=== PATIENT | female | born 1985 | race Caucasian/White ===

== ENCOUNTER 2021-11-11 14:07 | Emergency (ER) | payer OTHER, SELFPAY ==
[2021-11-11 14:12] VITALS: BP 142/79; PULSE 90; RESP 20; TEMP 36.3; O2SAT 100
[2021-11-11 14:25] VITALS: BP 142/79; PULSE 90; RESP 20; TEMP 36.3; O2SAT 100
--- NOTE | 2021-11-11 14:32 | PC.NURSE ---
takes victoza for appetite suppressant not for diabetes
--- NOTE | 2021-11-11 15:01 | ED.EYEPROB ---
HPI - Eye Problem General Chief complaint: Eye Problems Stated complaint: blurred vision Source: patient and RN notes reviewed Mode of arrival: ambulatory History of Present Illness HPI Narrative: This is a 36-year-old female diagnosed that while she was at work today she noticed a flash in her eye, headache with blurry vision and a little bit of dizziness and unsteadiness on her feet. Patient notes that she has never experienced this before and she is unsure which I had blurriness or the flash. Patient describes her headache as a pulsating pain on the left side of her eye. The patient denies SOB, CP, palpitation, extremity numbness, lightheadedness, dizziness, constipation, diarrhea, chills, or fever. According to patient she still has a headache but none of the other symptoms. Patient Related Data Home Medications Medication Instructions Recorded Confirmed liraglutide [Victoza 3-Mele] mg SUBCUT 11/11/21 omeprazole 11/11/21 Allergies Allergy/AdvReac Type Severity Reaction Status Date / Time aspirin Allergy Mild Rash Verified 11/11/21 14:25 Review of Systems Review of Systems: A 14 organ system Review of Systems was performed and pertinent positives included in the HPI, otherwise remaining ROS is negative. REPLACED BY [facility] Past Medical History Medical History Anxiety Depression PCOS (polycystic ovarian syndrome) induced hypertension Surgical History Surgical History History of classical section History of tonsillectomy Hx of tubal ligation Family History Family History Other Diabetes mellitus Hypertension Social History Social History (Updated 11/23/19 @ 01:02 by Shaji Cruz) Smoking status: Smoker, status unknown Tobacco type: cigarettes and e-cigarettes/vaping Second hand tobacco smoke exposure: Yes Alcohol intake: current Exam Narrative: GENERAL: This is a well-nourished, well-developed patient, in no apparent distress. HEAD: normocephalic, atraumatic. EYES: PERRL. Sclera clear/white. Vision is grossly intact. EARS: External ears normal, auditory canals clear and without drainage, TMs normal without perforation. Hearing grossly intact. NOSE: External nose normal with no obvious nasal discharge, nares without redness, no rhinorrhea. THROAT: Mucous membranes moist, posterior pharynx clear. NECK: Neck supple, non-tender without lymphadenopathy, masses or thyromegaly. CARDIOVASCULAR: Regular rate and rhythm without murmurs, gallops, or rubs. RESPIRATORY: Clear to auscultation. Breath sounds equal bilaterally. No wheezes, rales, or rhonchi. GASTROINTESTINAL: Abdomen soft, non-tender, nondistended. Bowel sounds are active. No hepato-splenomegaly, or palpable masses. No guarding. SKIN: warm, intact with no suspicious lesions or rash, good texture and turgor. NEURO: awake, alert, and oriented to person, place and time. There were no obvious focal neurologic abnormalities. Steady gait EXTREMITIES: Normal range of motion. No edema. No calf tenderness. Negative Homans sign bilaterally. BACK: Nontender without deformity or crepitance. No flank tenderness. Course Course Emergency Course: Patient will be treated for migraine headaches with Imitrex Vital Signs Vital signs: Vital Signs Temperature 97.4 F L 11/11/21 14:12 Pulse Rate 90 11/11/21 14:12 Respiratory Rate 20 11/11/21 14:12 Blood Pressure 142/79 H 11/11/21 14:12 Pulse Oximetry 100 11/11/21 14:12 Temperature 97.4 F L 11/11/21 14:25 Pulse Rate 90 11/11/21 14:25 Respiratory Rate 20 11/11/21 14:25 Blood Pressure 142/79 H 11/11/21 14:25 Pulse Oximetry 100 11/11/21 14:25 MDM - Eye Problem Differential Diagnosis Differential diagnosis: Likely conjunctivitis and other (Migraine headache) Discharge Plan Discharge Cli
== END 2021-11-11 15:02 | disposition home or self-care (01) ==
PROVIDERS: Emergency Provider Nurse Practitioner; PCP Internal Medicine
DX: G43.909 Migraine, unspecified, not intractable, without status migrainosus (principal)
CPT/HCPCS: 99213; G0463

== ENCOUNTER 2022-04-28 17:51 | Emergency (ER) | payer OTHER, SELFPAY ==
--- NOTE | 2022-04-28 18:10 | ED.URI ---
HPI - URI/Sore Throat General Chief Complaint: Upper Respiratory Infection Stated Complaint: cough/fever/vomiting/weakness Time Seen by Provider: 04/28/22 18:35 Source: patient and RN notes reviewed Mode of arrival: ambulatory Limitations: no limitations History of Present Illness HPI Narrative: 36-year-old female presents with concern for fever, body pain, cough, weakness, sinus congestion. Reports persistent cough causing burning in her chest. Reports symptoms started yesterday. She reports she took Tylenol prior to arrival. Reports she left work early because she was vomiting. She denies ear pain, sore throat, diarrhea. Denies known sick contacts. Reports she was hospitalized 1 week ago for cellulitis in order to get IV antibiotics. Reports she did not have the symptoms at that time. Reports her cellulitis is resolved, however she is currently still finishing her course of Cefdinir MD elicited complaint: cough and sore throat Related Data Home Medications Medication Instructions Recorded Confirmed cefdinir 300 mg capsule 1 cap PO BID 04/28/22 04/28/22 liraglutide 0.6 mg/0.1 mL (18 mg/3 1 ea subcut DAILY 04/28/22 04/28/22 mL) subcutaneous pen injector (Victoza 3-Mele) metformin 1,000 mg tablet 1 tablet PO DAILY 04/28/22 04/28/22 Allergies Allergy/AdvReac Type Severity Reaction Status Date / Time aspirin Allergy Mild Rash Verified 04/28/22 18:14 Review of Systems Review of Systems: CONSTITUTIONAL: Reports malaise, generalized weakness, fever. EYES: Denies visual changes, redness, or discharge. ENT: Reports rhinorrhea, congestion, sinus pain, otalgia and sore throat. CARDIOVASCULAR: Denies chest pain, palpitations, or edema. RESPIRATORY: Reports cough. Denies dyspnea. GASTROINTESTINAL: Denies abdominal pain, diarrhea. Reports nausea, vomiting, SKIN: Denies rash or itching. MUSCULOSKELETAL: Denies myalgia. NEUROLOGIC: Denies headache. All systems reviewed & are unremarkable except as noted in HPI and below PMFSH Past Medical History Medical History Anxiety Depression PCOS (polycystic ovarian syndrome) induced hypertension Surgical History Surgical History History of classical section History of tonsillectomy Hx of tubal ligation Family History Family History Other Diabetes mellitus Hypertension Social History Social History (Updated 11/23/19 @ 01:02 by Shaji Cruz) Smoking status: Smoker, status unknown Tobacco type: cigarettes and e-cigarettes/vaping Second hand tobacco smoke exposure: Yes Alcohol intake: current Comments At time of signature, agree with nursing past medical, surgical, social and family history. There is no relevant family history pertinent to the presenting complaint Exam Narrative: GENERAL: Nontoxic-appearing and in no acute distress. HEAD: Normocephalic EYES: PERRLA, conjunctivae clear ENT: Nares clear, clear discharge. Mucous membranes moist. TM pearly friedman with sharp light reflex bilaterally; no tragal tenderness. Oropharynx not erythematous without lesions. Tonsils not enlarged and without exudate, no drooling, no hoarseness, no trismus, uvula midline. NECK: Supple. No lymphadenopathy CHEST: Clear to auscultation, breath sounds equal. No wheezing, rhonchi, rales, or stridor. No respiratory distress, speaks in full sentences. Persistent cough noted HEART: Regular rate and rhythm. No murmur heard. SKIN: Warm, dry, no rash. NEURO: Alert and oriented x3. PSYCH: Normal mood and affect Course Course Emergency Course: Patient is allergic to aspirin, reports she has no allergy or reaction to ibuprofen, ibuprofen given due to patient's fever, she recently took Tylenol. Patient is aware of diagnosis, understands and agrees to treatment plan. Anticipatory guidance given.
[2022-04-28 18:20] VITALS: BP 133/105; PULSE 148; RESP 24; TEMP 39.2; O2SAT 100
[2022-04-28] MEDS: IBUPROFEN 400 MG TABLET 800 MG PO (18:36)
[2022-04-28 18:55] VITALS: BP 127/94; PULSE 123; RESP 20; TEMP 38.8
== END 2022-04-28 18:55 | disposition home or self-care (01) ==
PROVIDERS: Emergency Provider Nurse Practitioner
DX: B34.9 Viral infection, unspecified (principal); Z20.822 Contact with and (suspected) exposure to COVID-19; E28.2 Polycystic ovarian syndrome
CPT/HCPCS: 87426; 87804; 99213; A9270; C9803; G0463

== ENCOUNTER 2022-05-15 14:49 | Emergency (ER) | payer OTHER, SELFPAY ==
[2022-05-15 14:58] VITALS: BP 120/82; PULSE 75; RESP 16; TEMP 36.8; O2SAT 100
--- NOTE | 2022-05-15 15:06 | ED.SKABFB ---
HPI - Skin/Abscess/Foreign Bdy General Chief complaint: Skin/Abscess/Foreign Body Stated complaint: Lump on Left Arm Time Seen by Provider: 05/15/22 15:07 Source: patient Mode of arrival: ambulatory Limitations: no limitations History of Present Illness HPI narrative: 36 yo F presents with c/o possible insect bite to L upper arm since yesterday that is getting progressively worse. Started as small blister and now has significant surrounding redness. Also has a scabbed insect bite to R knee. No fever/chills. All systems reviewed and negative except as noted above. Related Data Home Medications Medication Instructions Recorded Confirmed liraglutide 0.6 mg/0.1 mL (18 mg/3 1 ea subcut DAILY 04/28/22 05/15/22 mL) subcutaneous pen injector (Victoza 3-Mele) metformin 1,000 mg tablet 1 tablet PO DAILY 04/28/22 05/15/22 Allergies Allergy/AdvReac Type Severity Reaction Status Date / Time aspirin Allergy Mild Rash Verified 05/15/22 14:54 Review of Systems Review of Systems: CONSTITUTIONAL: Denies fever, chills, or sweats. EYES: Denies visual changes, redness, or discharge. ENT: Denies rhinorrhea, congestion, sore throat, or otalgia. CARDIOVASCULAR: Denies chest pain, palpitations, or edema. RESPIRATORY: Denies cough or dyspnea. GASTROINTESTINAL: Denies abdominal pain, nausea, vomiting, or diarrhea. GENITOURINARY: Denies dysuria or hematuria. SKIN: Denies rash or itching. Reports erythema, blister to left upper arm. Reports scabbed insect bite to right knee. MUSCULOSKELETAL: Denies back pain, joint pain, or myalgia. NEUROLOGIC: Denies headache, numbness, or weakness. PSYCHIATRIC: Denies anxiety or depression. All other systems reviewed are negative, except as documented in HPI. [facility] Past Medical History Medical History Anxiety Depression PCOS (polycystic ovarian syndrome) induced hypertension Surgical History Surgical History History of classical section History of tonsillectomy Hx of tubal ligation Family History Family History Other Diabetes mellitus Hypertension Social History Social History (Updated 11/23/19 @ 01:02 by Shaji Cruz) Smoking status: Smoker, status unknown Tobacco type: cigarettes and e-cigarettes/vaping Second hand tobacco smoke exposure: Yes Alcohol intake: current Comments At time of signature, agree with nursing past medical, surgical, social and family history. There is no relevant family history pertinent to the presenting complaint. Exam Narrative: GENERAL: This is a well-nourished, well-developed patient, in no apparent distress. HEAD: normocephalic, atraumatic. EYES: PERRL. Sclera clear/white. Vision is grossly intact. EARS: External ears normal NOSE: External nose normal THROAT: Mucous membranes moist, posterior pharynx clear. NECK: Neck supple, non-tender without lymphadenopathy, masses or thyromegaly. CARDIOVASCULAR: Regular rate and rhythm without murmurs, gallops, or rubs. RESPIRATORY: Clear to auscultation. Breath sounds equal bilaterally. No wheezes, rales, or rhonchi. SKIN: warm, Dry, intact with no suspicious lesions or rash, good texture and turgor. 1 cm serous blister to posterior aspect of upper arm. There is 10 cm x 6 cm surrounding erythema. Mild swelling. No warmth. No tenderness on palpation. There is a 1 cm scabbed lesion to right knee. No surrounding erythema. NEURO: awake, alert, and oriented to person, place and time. There were no obvious focal neurologic abnormalities. EXTREMITIES: No joint tenderness, effusion, or edema noted. Course Course Level of Care: Express Care Visit Vital Signs Vital signs: Vital Signs Temperature 36.8 C 05/15/22 14:58 Pulse Rate 75 05/15/22 14:58 Respiratory Rate 16 05/15/22 14:58 Blood Pressure
== END 2022-05-15 15:27 | disposition home or self-care (01) ==
PROVIDERS: Emergency Provider Nurse Practitioner Family; PCP Internal Medicine
DX: S40.862A Insect bite (nonvenomous) of left upper arm, initial encounter (principal); S80.261A Insect bite (nonvenomous), right knee, initial encounter; W57.XXXA Bitten or stung by nonvenomous insect and other nonvenomous arthropods, initial encounter; E28.2 Polycystic ovarian syndrome
CPT/HCPCS: 99213; G0463

== ENCOUNTER 2022-09-07 13:16 | Emergency (ER) | payer OTHER, SELFPAY ==
[2022-09-07 13:29] VITALS: BP 123/72; PULSE 74; RESP 18; TEMP 36.7; O2SAT 100
--- NOTE | 2022-09-07 14:48 | ED.SKABFB ---
HPI - Skin/Abscess/Foreign Bdy General Chief complaint: Skin/Abscess/Foreign Body Stated complaint: lump back of head Time Seen by Provider: 09/07/22 14:43 Source: patient Mode of arrival: ambulatory Limitations: no limitations History of Present Illness HPI narrative: Patient presents today complaining of a painful bump on the back of her head that is causing a headache. Symptoms began 2 days ago. Patient has tried no [id number] treatment prior to arrival. Currently rates her pain 04/29. Related Data Home Medications Medication Instructions Recorded Confirmed liraglutide 0.6 mg/0.1 mL (18 mg/3 1 ea subcut DAILY 04/28/22 09/07/22 mL) subcutaneous pen injector (Victoza 3-Mele) metformin 1,000 mg tablet 1,000 mg DIRECTED 09/07/22 09/07/22 Allergies Allergy/AdvReac Type Severity Reaction Status Date / Time aspirin Allergy Mild Rash Verified 05/15/22 14:54 Review of Systems Review of Systems: CONSTITUTIONAL: Denies body aches, fever, chills, or sweats. EYES: Denies visual changes, redness, or discharge. ENT: Denies rhinorrhea, congestion, sore throat, or otalgia. CARDIOVASCULAR: Denies chest pain, palpitations, or edema. RESPIRATORY: Denies cough or dyspnea. GASTROINTESTINAL: Denies abdominal pain, nausea, vomiting, or diarrhea. GENITOURINARY: Denies dysuria or hematuria. SKIN: + Lump to scalp MUSCULOSKELETAL: Denies back pain, joint pain, or myalgia. NEUROLOGIC: Denies headache, numbness, tingling, or weakness. PSYCH: Denies depression or anxiety. [facility] Past Medical History Medical History Anxiety Depression PCOS (polycystic ovarian syndrome) induced hypertension Surgical History Surgical History History of classical section History of tonsillectomy Hx of tubal ligation Family History Family History Other Diabetes mellitus Hypertension Social History Social History Smoking status: Smoker, status unknown Tobacco type: cigarettes and e-cigarettes/vaping Second hand tobacco smoke exposure: Yes Alcohol intake: current Comments At time of signature, I have reviewed and agree with nursing past medical, surgical, social and family history unless otherwise noted. Please see nursing chart for further information. There is no relevant family history pertinent to the presenting complaint Exam Narrative: GENERAL: Well-appearing, well-nourished, and in no acute distress. HEAD: Normocephalic, atraumatic. EYES: EOMI. No redness or drainage. Conjunctivae normal. ENT: Mucous membranes pink and moist. NECK: Normal AROM. CHEST: No respiratory distress. EXTREMITIES: Normal range of motion. No edema. SKIN: Warm, dry, no rash. Capillary refill normal. Normal skin turgor. 2cm round erythematous indurated area to the left posterior scalp that is tender to palpation. No fluctuance. No drainage. NEURO: No focal deficits. Alert and oriented x3. Gait steady. PSYCH: Normal affect. No signs of depression or anxiety. Course Course Level of Care: Express Care Visit Vital Signs Vital signs: Vital Signs Temperature 98.1 F 09/07/22 13:29 Pulse Rate 74 09/07/22 13:29 Respiratory Rate 18 09/07/22 13:29 Blood Pressure 123/72 09/07/22 13:29 Pulse Oximetry 100 09/07/22 13:29 Oxygen Delivery Room Air 09/07/22 13:29 Temperature 98.1 F 09/07/22 13:29 Pulse Rate 74 09/07/22 13:29 Respiratory Rate 18 09/07/22 13:29 Blood Pressure 123/72 09/07/22 13:29 Pulse Oximetry 100 09/07/22 13:29 Oxygen Delivery Room Air 09/07/22 13:29 Reviewed. Pt has been instructed to follow up with her PCP regarding her elevated blood pressure today. MDM - Skin/Abscess/Foreign Bdy Differential Diagnosis Differenti
== END 2022-09-07 14:55 | disposition home or self-care (01) ==
PROVIDERS: Emergency Provider Nurse Practitioner; PCP Internal Medicine
DX: L03.811 Cellulitis of head [any part, except face] (principal); E28.2 Polycystic ovarian syndrome
CPT/HCPCS: 99213; G0463

== ENCOUNTER 2023-12-26 19:23 | Emergency (ER) | payer SELFPAY ==
--- NOTE | ~2023-12-26 | XR_ITS ---
EXAM: XR foot LT min 3V DATE: 12/26/2023 19:55 HISTORY: LEFT LATERAL FOOT PAIN AND SWELLING , NO INJURY . COMPARISON: None. FINDINGS: Normal mineralization. No fracture or dislocation. No lytic or blastic lesion. Mild degene rative change at the first MTP joint. No erosion or periosteal change. Soft tissues within normal riley its. IMPRESSION: No acute osseous finding in the left foot. Reviewed, dictated and finalized at location K. [employer]
[2023-12-26 19:35] VITALS: BP 134/88; PULSE 74; RESP 18; TEMP 36.3; O2SAT 100
--- NOTE | 2023-12-26 20:13 | ED.GENADULT ---
HPI - General Adult General Chief complaint: Extremity Problem,Nontraumatic Stated complaint: pain in left foot Time Seen by Provider: 12/26/23 20:13 Source: patient, RN notes reviewed and old records reviewed Mode of arrival: ambulatory Limitations: no limitations History of Present Illness HPI narrative: 38-year-old female presents to the [facility] with pain to the lateral left foot. Symptoms started over month ago. Patient denies any injury. Has not followed up with primary care provider. States that she tried a new pair of shoes which has not helped. States pain is better in the morning gets worse throughout the day. Related Data Home Medications Medication Instructions Recorded Confirmed liraglutide 0.6 mg/0.1 mL (18 mg/3 1 ea subcut DAILY 04/28/22 12/26/23 mL) subcutaneous pen injector (Victoza 3-Mele) metformin 1,000 mg tablet 1,000 mg DIRECTED 09/07/22 12/26/23 Allergies Allergy/AdvReac Type Severity Reaction Status Date / Time aspirin Allergy Mild Rash Verified 12/26/23 19:54 Review of Systems Review of Systems: All systems reviewed & are unremarkable except as noted in HPI and below Constitutional: Constitutional: Reports no additional constitutional complaints Eyes: Eyes: Reports no additional eye complaints ENT: Reports system reviewed and no additional complaints, except as documented Cardiovascular: Cardiovascular: Reports no additional cardiovascular complaints, Denies chest pain and Denies dyspnea Respiratory: Respiratory: Reports no additional respiratory complaints, Denies chest congestion, Denies cough and Denies dyspnea Gastrointestinal: Gastrointestinal: Reports no additional gastrointestinal complaints, Denies abdominal pain, Denies nausea and Denies vomiting Musculoskeletal: Musculoskeletal: Reports as per HPI Integumentary/Breasts: Skin/Breast: Reports system reviewed and no additional complaints, except as docu Neurologic: Reports system reviewed and no additional complaints, except as documented Psychiatric: Psychiatric: Reports no additional psychiatric complaints Allergic/Immunologic: Allergic/Immunologic: Reports no additional allergic/immunologic complaints [facility] Past Medical History Medical History Anxiety Depression PCOS (polycystic ovarian syndrome) induced hypertension Surgical History Surgical History History of classical section History of tonsillectomy Hx of tubal ligation Family History Family History Other Diabetes mellitus Hypertension Social History Social History Smoking status: Smoker, status unknown Tobacco type: cigarettes and e-cigarettes/vaping Second hand tobacco smoke exposure: Yes Alcohol intake: current Comments At the time of my signature, I reviewed and agree with the nursing past medical, surgical, social, and family history. There is no relevant family history pertinent to the patient complaint. Exam Const: General: cooperative, healthy appearing, comfortable, no acute distress, well developed, alert and well nourished Nutritional Appearance: well nourished Orientation/consciousness: patient oriented x3 Limitations: no limitations HENMT: Head: normal to inspection Ears: hearing grossly normal bilaterally and external ears normal Face/Nose/Sinus: Normal external nose present, Normal nares present, Normal nasal mucous membranes and turbinates present, normal facial exam and face symmetric Face and sinus: normal facial exam and face symmetric Eyes: General: appearance normal, both eyes and all related structures Alignment and Position: alignment normal Periorbital: periorbital findings normal Pupils: Equal, round and reactive pupils present EOM: EOMs intact bilaterally Neck:
== END 2023-12-26 20:22 | disposition home or self-care (01) ==
PROVIDERS: Emergency Provider Nurse Practitioner; PCP Internal Medicine
DX: M79.672 Pain in left foot (principal); F17.210 Nicotine dependence, cigarettes, uncomplicated; F17.290 Nicotine dependence, other tobacco product, uncomplicated; E28.2 Polycystic ovarian syndrome
CPT/HCPCS: 73630; 99213; G0463

== ENCOUNTER 2024-06-10 19:21 | Emergency (ER) | payer SELFPAY ==
[2024-06-10 19:30] VITALS: BP 140/77; PULSE 103; RESP 22; TEMP 38.4; O2SAT 95
--- NOTE | 2024-06-10 19:38 | ED.URI ---
HPI - URI/Sore Throat General Chief Complaint: Upper Respiratory Infection Stated Complaint: congestion,fever,cough,VENCES Time Seen by Provider: 06/10/24 19:32 Source: patient and RN notes reviewed Mode of arrival: ambulatory Limitations: no limitations History of Present Illness HPI Narrative: Patient presents today complaining 4 day history congestion, headache, nonproductive cough. Three days ago fever started with a T-max of 102.9?. Denies sore throat or difficulty swallowing. Deep breath elicits coughing episodes. She has been trying Mucinex, cold and flu medicine, and ibuprofen with some mild relief. Related Data Home Medications Medication Instructions Recorded Confirmed liraglutide 0.6 mg/0.1 mL (18 mg/3 1 ea subcut DAILY 04/28/22 12/26/23 mL) subcutaneous pen injector (Victoza 3-Mele) metformin 1,000 mg tablet 1,000 mg DIRECTED 09/07/22 12/26/23 Allergies Allergy/AdvReac Type Severity Reaction Status Date / Time aspirin Allergy Mild Rash Verified 06/10/24 19:23 Review of Systems Review of Systems: CONSTITUTIONAL: Denies body aches, chills, or sweats.+ fever EYES: Denies visual changes, redness, or discharge. ENT: Denies rhinorrhea, sore throat, or otalgia.+ congestion CARDIOVASCULAR: Denies chest pain, palpitations, or edema. RESPIRATORY: Denies dyspnea.+ cough GASTROINTESTINAL: Denies abdominal pain, nausea, vomiting, or diarrhea. GENITOURINARY: Denies dysuria or hematuria. SKIN: Denies rash, itching, or wounds. MUSCULOSKELETAL: Denies back pain, joint pain, or myalgia. NEUROLOGIC: Denies numbness, tingling, or weakness.+ headache PSYCH: Denies depression or anxiety. [facility] Past Medical History Medical History Anxiety Depression PCOS (polycystic ovarian syndrome) induced hypertension Surgical History Surgical History History of classical section History of tonsillectomy Hx of tubal ligation Family History Family History Other Diabetes mellitus Hypertension Social History Social History Smoking status: Smoker, status unknown Tobacco type: cigarettes and e-cigarettes/vaping Second hand tobacco smoke exposure: Yes Alcohol intake: current Comments At time of signature, I have reviewed and agree with nursing past medical, surgical, social and family history unless otherwise noted. Please see nursing chart for further information. There is no relevant family history pertinent to the presenting complaint Exam Narrative: GENERAL: Mildly ill-appearing, well-nourished, and in no acute distress. Diaphoretic HEAD: Normocephalic, atraumatic. EYES: EOMI. No redness or drainage. Conjunctivae normal. ENT: Mucous membranes pink and moist. Nares congested. No rhinorrhea. TMs normal bilaterally. Throat normal. Uvula midline. NECK: Normal AROM. Supple. No lymphadenopathy. CHEST: No respiratory distress. Clear to auscultation. HEART: Regular rate and rhythm. No murmur appreciated. EXTREMITIES: Normal range of motion. No edema. SKIN: Warm, dry, no rash. Capillary refill normal. Normal skin turgor. NEURO: No focal deficits. Alert and oriented x3. Gait steady. PSYCH: Normal affect. No signs of depression or anxiety. Course Course Level of Care: Express Care Visit Vital Signs Vital signs: Vital Signs Temperature 101.1 F H 06/10/24 19:30 Pulse Rate 103 H 06/10/24 19:30 Respiratory Rate 22 H 06/10/24 19:30 Blood Pressure 140/77 06/10/24 19:30 Pulse Oximetry 95 06/10/24 19:30 Oxygen Delivery Room Air 06/10/24 19:30 Temperature 101.1 F H 06/10/24 19:30 Pulse Rate 103 H 06/10/24 19:30 Respiratory Rate 22 H 06/10/24 19:30 Blood Pressure 140/77 06/10/24 19:30 Pulse Oximetry
[2024-06-10 19:48] LABS: EDINFLUASCREEN Negative; EDINFLUBSCREEN Negative; EDSTREPNEGPOS1 Presumptive Negative
== END 2024-06-10 19:53 | disposition home or self-care (01) ==
PROVIDERS: Emergency Provider Nurse Practitioner; PCP Internal Medicine
DX: B34.9 Viral infection, unspecified (principal); Z20.822 Contact with and (suspected) exposure to COVID-19; F17.210 Nicotine dependence, cigarettes, uncomplicated; F17.290 Nicotine dependence, other tobacco product, uncomplicated; E28.2 Polycystic ovarian syndrome
CPT/HCPCS: 87081; 87426; 87804; 87880; 99213; G0463

== ENCOUNTER 2024-06-11 18:56 | Emergency (ER) | payer SELFPAY ==
[2024-06-11] VITALS (9 sets, daily range): BP systolic 125–152; BP diastolic 78–108; PULSE 89–115; RESP 15–20; TEMP 37.1; O2SAT 94–100
--- NOTE | ~2024-06-11 | XR_ITS ---
EXAMINATION: XR chest 2V Exam Date/Time: 06/11/2024 19:35 CDT HISTORY: cough, fever, sob Comparison: 03/12/2009. RESULT: Lines, tubes, and devices: None. Lungs and pleura: Ill-defined area of segmental airspace disease in the right lower lobe. Cardiomediastinal silhouette: Stable. Other: No acute osseous or upper abdominal finding. IMPRESSION: Findings concerning for right lower lobe pneumonia. Reviewed, dictated and finalized at location K.
--- NOTE | ~2024-06-11 | CT_ITS ---
EXAMINATION: CTA chest PE protocol DATE: 06/12/2024 00:30 INDICATION: Shortness of breath and right lower lobe pneumonia TECHNIQUE: Computed tomography (CT) pulmonary angiogram of the chest was performed with 100 mL Omnipa que-350 intravenous contrast. Additional 3D reconstructions utilizing coronal maximum intensity proje ction (MIP) were performed. Automated exposure control and iterative reconstruction technique were em ployed. The dose-length product was 1171.40 mGy-cm. COMPARISON: None FINDINGS: No pulmonary embolism. Centrilobular groundglass nodules with tree-in-bud pattern scattered throughou t the in the right upper, middle, bilateral lower lobes, and at the junction of the left upper lobe a nd lingula consistent with multifocal pneumonia. No pulmonary edema, pleural effusion or pneumothorax . Heart size is normal. No pericardial effusion. Thoracic aorta is normal in caliber with no dissecti on. Mild reticulonodular pattern soft tissue density interspersed with fat in the anterior mediastinu m with triangular configuration consistent with thymic hyperplasia. Mild likely reactive bilateral hi lar lymphadenopathy. Cholecystectomy clips in the right upper quadrant. Mild splenomegaly. Bones are unremarkable. IMPRESSION: 1. Bilateral haines lobar pneumonia. No pulmonary embolism. 2. Mild likely reactive bilateral hilar lymphadenopathy, nonspecific splenomegaly and rebound thymic hyperplasia. Reviewed, dictated and finalized at location A. IMPRESSION: 1. Bilateral haines lobar pneumonia. No pulmonary embolism. 2. Mild likely reactive bilateral hilar lymphadenopathy, nonspecific splenomega ly and rebound thymic hyperplasia.
--- NOTE | 2024-06-11 19:21 | ECG_ITS ---
Test Date: 2024-06-11 19:25:47 Measurements Intervals [place] Rate: 100 P: 54 NC: 142 QRS: 65 QRSD: 90 T: 16 QT: 304 QTc: 393 Interpretive Statements SINUS TACHYCARDIA NONSPECIFIC ST-T WAVE ABNORMALITY- INFERIOR LEADS BASELINE ARTIFACT- II, III, AVR, AVL, AVF, V1-V2 BORDERLINE ECG No previous ECG available for comparison Electronically Signed On 06-11-2024 19:28:27 CDT by Kory Elliott D.O.
[2024-06-11 19:42] LABS: Basophils Percent Auto 0.3 % (0.2-1.2); Eosinophils Percent Auto 0.5 % (0-4.4); Hematocrit 36.7 % (37.0-47.0); Immature Granulocyte Absolute 0.02 K/mm3 (0.00-0.031); Immature Granulocyte Percent A 0.3 % (0-0.5); Lymphocytes Absolute Auto 1.27 K/mm3 (0.9-3.2); Lymphocytes Percent Auto 17.1 % (18.3-44.2); Mean Corpuscular HGB Conc 32.7 g/dl (32-36); Mean Corpuscular Hemoglobin 29.6 pg (26-34); Mean Corpuscular Volume 90.4 fl (80-100); Mean Platelet Volume 10.9 fl (7.4-10.4); Monocytes Absolute Auto 0.6 K/mm3 (0.1-0.6); Monocytes Percent Auto 8.2 % (2.6-8.5); Neutrophils Absolute Auto 5.5 K/mm3 (1.3-6.7); Neutrophils Percent Auto 73.6 % (45.5-73.1); Platelet Count Result 220 k/mm3 (150-375); Red Blood Count 4.06 M/mm3 (4.2-5.4); Red Cell Distribution Width 14.3 % (11.5-14.5); White Blood Count 7.4 K/mm3 (4.5-10.0)
[2024-06-11 19:54] LABS: Alanine Aminotransferase 17 U/L (6-35); Albumin Level 4.2 g/dL (3.5-5.1); Alkaline Phosphatase 59 U/L (38-126); Anion Gap 10 mmol/L (4-12); Aspartate Amino Transferase 21 U/L (14-36); Bilirubin,Total 0.4 mg/dL (0.2-1.3); Blood Urea Nitrogen 17 mg/dL (7-17); Calcium 8.7 mg/dL (8.4-10.2); Carbon Dioxide 31 mmol/L (22-30); Chloride 96 mmol/L (98-107); Estimated CRCL calculation 102 ml/min; Estimated Glomerular Filt Rate > 60; Glucose 101 mg/dL (65-110); Potassium 3.7 mmol/L (3.4-5.0); Sodium 137 mmol/L (137-145)
[2024-06-11 20:17] LABS: Influenza A QL RT-PCR Negative (Negative); Influenza B QL RT-PCR Negative (Negative); RSV RNA, RT-PCR Negative (Negative); SARS-CoV-2 RNA PCR Negative (Negative)
--- NOTE | 2024-06-11 23:42 | ED.URI ---
HPI - URI/Sore Throat General Chief Complaint: Upper Respiratory Infection Stated Complaint: fever,cough Time Seen by Provider: 06/11/24 22:27 Source: patient Mode of arrival: ambulatory Limitations: no limitations History of Present Illness HPI Narrative: Patient is a 38-year-old female who presents the ED with report of fevers/cough. Patient reports she has been sick since with intermittent fevers, productive cough, myalgias, chest congestion, shortness of breath. She reports shortness breath is worse with exertion and lying flat. She seen in urgent care, tested negative for COVID/flu and diagnosed with a viral infection. She reports symptoms have persisted and shortness of breath has worsened. She used a home pulse oximeter which showed her pulse ox to be 89% on room air, which prompted her presentation. Patient denies previous oxygen requirement. Denies chest pain, pain or swelling in lower extremities. She does report her significant other recently was diagnosed with pneumonia and her daughter has had a sinus infection. Related Data Home Medications Medication Instructions Recorded Confirmed liraglutide 0.6 mg/0.1 mL (18 mg/3 1 ea subcut DAILY 04/28/22 12/26/23 mL) subcutaneous pen injector (Victoza 3-Mele) metformin 1,000 mg tablet 1,000 mg DIRECTED 09/07/22 12/26/23 Allergies Allergy/AdvReac Type Severity Reaction Status Date / Time aspirin Allergy Mild Rash Verified 06/11/24 18:58 Review of Systems Review of Systems: CONSTITUTIONAL: See HPI. ENT: See HPI. CARDIOVASCULAR: Denies chest pain RESPIRATORY: See HPI. All systems reviewed & are unremarkable except as noted in HPI and below PMFSH Past Medical History Medical History Anxiety Depression PCOS (polycystic ovarian syndrome) induced hypertension Surgical History Surgical History History of classical section History of tonsillectomy Hx of tubal ligation Family History Family History Other Diabetes mellitus Hypertension Social History Social History Smoking status: Smoker, status unknown Tobacco type: cigarettes and e-cigarettes/vaping Second hand tobacco smoke exposure: Yes Alcohol intake: current Exam Narrative: GENERAL: Well appearing, morbidly obese with BMI of 56.5, non-toxic, in no acute distress. HEAD: Normocephalic, atraumatic. RESPIRATORY: Airway patent, respirations nonlabored. Mild rhonchi in right lower lung zone. Occasional coughing on exam. CARDIOVASCULAR: Tachycardic with regular rhythm without murmurs, rubs, or gallops. ABDOMINAL: Soft, nontender, nondistended. Normoactive BS. MUSCULOSKELETAL: Moves all extremities. No gross deformities. No lower extremity edema. No calf tenderness. SKIN: Warm, dry, normal color. NEURO: A&O X3. Speech clear. PSYCHIATRIC: Appropriate mood and affect. Normal interaction. Course Vital Signs Vital signs: Vital Signs Temperature 98.8 F 06/11/24 19:17 Pulse Rate 89 06/11/24 19:17 Respiratory Rate 16 06/11/24 19:17 Blood Pressure 152/78 H 06/11/24 19:17 Pulse Oximetry 97 06/11/24 19:17 Oxygen Delivery Room Air 06/11/24 19:17 Temperature 98.8 F 06/11/24 19:17 Pulse Rate 104 H 06/11/24 22:28 Respiratory Rate 17 06/11/24 22:28 Blood Pressure 136/85 06/11/24 22:28 Pulse Oximetry 94 06/11/24 22:28 Oxygen Delivery Room Air 06/11/24 22:28 MDM - URI/Sore Throat MDM Narrative Medical decision making narrative: Patient presented to ED with several day history of cough, fevers, myalgias. Vital signs are stable upon arrival. Patient mildly tachycardic upon my evaluation. Cbc without leukocytosis. CMP unremarkable. Viral swabs were negative
[2024-06-12] VITALS (18 sets, daily range): BP systolic 124–154; BP diastolic 67–118; PULSE 100–118; RESP 15–27; O2SAT 89–98
[2024-06-12 00:04] LABS: NT Pro B Type Natriuretic Pept < 20 pg/mL (19.9-100); Troponin I < 0.012 ng/mL (0.000-0.034)
[2024-06-12] MEDS: AZITHROMYCIN 500 MG/NS 250 ML 500 MG/250 ML BAG 250 MG IVPB (02:40)
--- NOTE | 2024-06-12 03:33 | PC.NURSE ---
PT c/o that her arm with the IV was hurting up to her shoulder. ERP notified and ok with stopping IV ABX and D/C patient.
== END 2024-06-12 03:34 | disposition home or self-care (01) ==
PROVIDERS: Emergency Medicine; Emergency Provider Physician Assistant; PCP Internal Medicine
DX: J18.9 Pneumonia, unspecified organism (principal); F17.210 Nicotine dependence, cigarettes, uncomplicated; Z20.822 Contact with and (suspected) exposure to COVID-19
CPT/HCPCS: 36415; 71046; 71275; 80053; 83880; 84484; 85025; 87637; 93005; 96365; 96367; 99284; J0456; J0696; Q9967

== ENCOUNTER 2025-04-03 22:35 | Emergency (ER) | payer SELFPAY ==
--- OUTSIDE RECORDS SUMMARY | 2025-04-03 22:38 | XMS_ITS | Clinical Summary ---
Author Organization [facility] Address [address] [place] [address] Care Team Providers Care Performance Analyst Name Role Phone Unavailable Primary Care Provider Unavailabl e Social History Tobacco Use Types Packs/Day Years Used Date Smoking Tobacco: Never Assessed Comments Unknown Sex and Gender Information Value Date Recorded Sex Assigned at Not on file Legal Sex Female 12:38 PM BODY DESIGN CHECKER Gender Identity Not on file Sexual Orientation Not on file Plan of Treatment Health Maintenance Due Date Last Done Comments Hepatitis C Virus (HCV) Screening 1985 TdaP Immunization 1985 Pap Smear 2006 Cervical Cancer Screening (CCS) 2015 HPV/Cotest 2015 Influenza Immunization (#1) 2024 10/30/2017, 0 12/27/2016 SARS-COV-2 Immunization ( season) 2024 Respiratory Syncytial Virus (RSV) Immunization (Adult) (1 - 1-dose 75+ series) 2060 DTaP/Tdap/Td Immunization Discontinued 1999, 05/26/1990, 07/25/1987, Additional history exists Hepatitis B Immunization Completed 001, 2000, 06/28/2000 Meningococcal Immunization (ACWY) Aged Out No longer eligible based on patient's age to complete this topic Pneumococcal Immunization Combined Aged Out No longer eligible based on patient's age to complete this topic Rotavirus Immunization Aged Out No lo nger eligible based on patient's age to complete this topic
--- OUTSIDE RECORDS SUMMARY | 2025-04-03 22:38 | XMS_ITS | Clinical Summary ---
Author Organization [facility] Address [address] [place] [address] Care Team Providers Care National Park Tour Guide Name Role Phone Guido Echols MD Primary Care Provider [phone] Allergies Active Allergy Reactions Criticality Noted Date Comments Aspirin Chest pressure,Shortness of Breath High 0 03/17/2016 Medications omeprazole (PRILOSEC) 20 MG capsuleIndicatio ns:Acid reflux Take 1 capsule (20 mg total) by mouth daily. 30 capsule 3 1 Active metFORMIN 1000 MG tabletIndication s:Class 3 severe obesity due to excess calories without serious comorbidity with body mass index (BMI) of 50.0 to 59.9 in adult Take 1 tablet (1,000 mg total) by mouth 2 (two) times daily with meals. 60 tablet 2 2 Active Additional Information Patient not taking.Reported on 01/09/2023 ubrogepant (UBRELVY) 100 MG tabletIndication s:Other migraine without status migrainosus, intractable Take 1 tablet (100 mg total) by mouth daily as needed for Migraine. May take 2nd dose 2 hours later if headache persists. Max of 2 tablets (200 mg) in 24 hours 10 tablet 2 Active Active Problems Problem Noted Date Diagnosed Date PCOS (polycystic ovarian syndrome) 01/09/2023 Migraine 09/14/2022 Gastroesophageal reflux disease without esophagi tis 10/21/2021 Acute bacterial conjunctivitis of right eye 05/0 03/2021 Anxiety 03/17/2016 Fatigue 03/17/2016 Snoring 03/17/2016 Resolved Problems Problem Noted Date Diagnosed Date Resolved Date Cellulitis of scalp 09/14/2022 01/09/20 Insect bite of arm, left 09/14/2022 Insect bite of knee, right 09/14/2022 0 01/09/2023 Biliary colic 12/18/2019 10/21/2021 Pain, foot, right, chronic 12/27/2016 0 01/09/2023 Immunizations Immunization Administration Dates Next Due DTaP (Daptacel) 05/26/1990, 7,04/26/1986,1985,1985 Fluzone 6 Months+ Quad (0.5 mL Prefilled Syringe) 09/14/2022 Hepatitis B Pediatric 12/06/2000,2000,07/2000 Influenza Adult (Generic) 10/30/2017,09/2017,12/27/2016,2016 MMR 05/07/1991,03/21/1987 Polio IPV (Ipol) 07/25/1987, 6,02/22/1986,1985 Family History Medical History Relation Comments Diabetes Brother Diabetes Father Hyperlipidemia Father Hypertension Father Diabetes Maternal Grandfather Heart Disease Maternal Grandfather Kidney Disease Maternal Grandfather Diabetes Maternal Grandmother Hypertension Mother Thyroid Disease Sister Relation Status Comments Brother Father Maternal Grandfather Maternal Grandmother Mother Sister Social History Tobacco Use Types Packs/Day Years Used Date Smoking Tobacco: Former Cigarettes 1 20 0 07/05/1998 - 07/05/2018 Smokeless Tobacco: Never Tobacco Cessation:Counseling Given: Not Answered Alcohol Use Standard Drinks/Week Comments Yes 1 (1 standard drink = 0.6 oz pur e alcohol) 1 drink weekly AUDIT-C Answer Date Recorded Frequency of Alcohol Consumption Never 12/05/2019 Average Number of Drinks Not on file 020 Frequency of Binge Drinking Not on file 11/20 PHQ-2 Answer Date Recorded Patient Health Questionnaire-2 Score 0 01/09/2023 Comments No Sex and Gender Information Value Date Recorded Sex Assigned at Not on file Legal Sex Female 4:10 PM CDT Gender Identity Female 05/18/2022 10:21 AM CDT Sexual Orientation Not on file Last Filed Vital Signs Vital Sign Reading Time Taken Comments Blood Pressure 106/78 01/09/2023 3:56 PM PRACTICE MANAGERS Pulse 80 01/09/2023 3:56 PM PRACTICE MANAGERS Temperature 36.2 C (97.2 F) 01/09/2023 3:56 PM PRACTICE MANAGERS Respiratory Rate 16 01/09/2023 3:56 PM PRACTICE MANAGERS Oxygen Saturation 97% 01/09/2023 3:56 PM PRACTICE MANAGERS Inhaled Oxygen Concentration - - Weight 146.3 kg (322 lb 9.6 oz) 01/09/2023 3:56 PM PRACTICE MANAGERS Height 165.1 cm (5' 5 ) 01/09/2023 3:56 PM PRACTICE MANAGERS Body Mass Index 53.68 01/09/2023 3:56 PM PRACTICE MANAGERS Plan of Treatment Health Maintenance Due Date Last Done Comments Cervical Cancer Screening Pap Smear (Age 30 to 64) Every 3 Years 1985 DTaP, Tdap and Td Vaccines (6 - Tdap) 1996 05/26/1990, 07/25/1987, 04/26/1986, Additional history exists Hepatitis C 2003 Cervical Cancer Screening Pap with HPV Testing (Age 30 to 64) Every 5 Years 2015 Cervical Cancer Screening with HPV 2015 Annual Physical 03/08/2022 03/08/2021 COVID-19 Vaccine ( season) 2024 PHQ-2 (Physician Rand) 11/20/2024 Hepatitis B Vaccines Completed 12/06/2000, 2000, 06/28/2000 HPV Vaccines Aged Out No longer eligi ble based on patient's age to complete this topic Meningococcal B Vaccine Aged Out No l onger eligible based on patient's age to complete this topic Meningococcal Vaccine Aged Out No sebastian saul eligible based on patient's age to complete this topic Pneumococcal Vaccine: Pediatrics (0 to 5 Years) and At-Risk Patients (6 to 49 Years) Aged Out No longer eligible based on patient's age to complete this topic RSV Immunizations Under 20 Months Aged Out No longer eligible based on patient's age to complete this topic [place] [address] [place] [address] Care Teams National Park Tour Guide Relationship Specialty Start Date End Date Guido Echols MD [address] [place] [id number] PCP - General INTERNAL MEDICINE 12/05/19
--- OUTSIDE RECORDS SUMMARY | 2025-04-03 22:38 | XMS_ITS | Encounter Summary ---
Author Organization [facility] Address [address] [place] [address] Care Team Providers Care Mold Finisher Name Role Phone Guido Echols MD Primary Care Provider [phone] Encounter Details Date Type Department Care Team (Late st Contact Info) Description 08/20/2021 Prep for Procedure [facility] Pre-Admission Testing [facility] [place] [address] Kvng Huerta MD [address] [place] [phone] Social History Tobacco Use Types Packs/Day Years Used Date Smoking Tobacco: Former Cigarettes 1 20 0 07/05/1998 - 07/05/2018 Smokeless Tobacco: Never Alcohol Use Standard Drinks/Week Comments No 0 (1 standard drink = 0.6 oz pur e alcohol) AUDIT-C Answer Date Recorded Frequency of Alcohol Consumption Never 12/05/2019 Average Number of Drinks Not on file 020 Frequency of Binge Drinking Not on file 11/20 PHQ-2 Answer Date Recorded PHQ-2 Score - If the patient scores above 3, please move on to questions 3-9 0 07/21/2021 Comments No Sex and Gender Information Value Date Recorded Sex Assigned at Not on file Legal Sex Female 4:10 PM CDT Gender Identity Female 05/18/2022 10:21 AM CDT Sexual Orientation Not on file COVID-19 Exposure Response Date Recorded In the last month, have you been in contact with someone who was confirmed or suspected to have Coronavirus / COVID-19? No / Unsure 07/21/2021 9:31 AM CDT documented as of this encounter Plan of Treatment Not on file documented as of this encounter Results * CORONAVIRUS (COVID 19) (08/23/2021 11:41 AM CDT) SPEC DESCRIPTION NASAL 08/23/20 11:41 AM CDT [facility] CORONAVIRUS SARS COV 2 PCR (RESP) NEGATIVE NEGATIVE 08/23/2021 8:21 PM CDT [facility] Comment: THE SARS-CoV-2 TEST HAS BEEN AUTHORIZED BY THE FDA UNDER AN EUA FOR USE BY AUTHORIZED LABORATORIES. PERFORMED BY NUCLEIC ACID AMPLIFICATION PCR FIRST TEST NO 08/23/2021 11:41 AM CDT [facility] EMPLOYED IN HEALTHCARE NO 08/23/2021 11:41 AM CDT [facility] SYMPTOMATIC DEFINED BY CDC NO 08/23/2021 11:41 AM CDT [facility] HOSPITALIZATION STATUS NO 08/23/2021 11:41 AM CDT [facility] PATIENT IN ICU NO 08/23/2021 11:41 AM CDT [facility] RESIDENT OF [facility] NO 08/23/2021 11:41 AM CDT [facility] NOT 08/23/2021 11:41 AM CDT [facility] NASAL STRUCTURE / Unknown 08/23/2021 11:41 AM CDT us Kvng Huerta MD MICROBIOLOGY - GENERAL ORDERABL ES Final Result [facility] [address] [place] [address], [place] [phone] [facility] [address] [place], [place] [address] [phone] documented in this encounter Visit Diagnoses Diagnosis Preop examination- Primary Preoperative examination, unspecified documented in this encounter Additional Health Concerns Infection Onset Date Last Indicated Resolved Time COVID-19 Rule Out 08/23/2021 08/23/2021 08/23/2021 8:21 PM CDT COVID-19 Rule Out 11/24/2021 11/24/2021 12/01/2021 12:33 AM ELECT EQUIP MAINT ENG Assessment Noted Time PHQ-9 Depression Total Score: 0 07/21/20 9:38 AM CDT documented as of this encounter Care Teams Mold Finisher Relationship Specialty Start Date End Date Guido Echols MD [address] [place] [id number] PCP - General INTERNAL MEDICINE 12/05/19 documented as of this encounter
--- OUTSIDE RECORDS SUMMARY | 2025-04-03 22:38 | XMS_ITS | Data Portability ---
Author Organization [facility] Main Office Address [address] [place] [address] Care Team Providers Care Manager Hris Name Role Phone SOILA ANTONIO General Internal Medicine Physician Unavailable Assessment Encounter Date Assessment Date Assessment LastModified by Organization Details LastModified Time 07/01/2024 07/01/2024 38-year-old female presents for evaluation of her right shoulder. She reports this is a work-related injury. 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 It involves a lot of repetitive overhead reaching. She reports her symptoms began on February 12 of this year when she was pulling some items off a shelf. She had pain with elevation and lifting. She had a course of physical therapy which has helped. She can now lift without any issues as long as it is not overhead. She has been working and has been able to accommodate this. She rates her pain currently as 1/10 Review of systems per patient questionnaire Physical exam: She has no focal tenderness. Full range of motion with 50/40/lower lumbar. Five 5 rotator cuff strength. She has negative Ben's, negative Neer and Gracia, negative [place]'s. At this point, she has improved with activity modification physical therapy. She does not want any additional treatment and feels like she can continue working in her current capacity. We we will make her MMI. She may work full duty, but try to limit the amount of repetitive overhead lifting if possible. She may take [id number] NSAIDs if it flares up. We do not need to see her back unless she has any other issues. [email or web address] Not available 07/04/2024 01:17:01 Plan of Treatment Reminders Order Date Submit Date Provider Last Modified By Organization Details Last Modified Time Details Appointments None record ed. Lab None record ed. Referral None record ed. Procedures None record ed. Surgeries None record ed. Imaging XR, should er, 2 or more view 024 07/01/20 24 [email or web address] [facility], [address] [facility], [place], [address], 08:22:57 Medication Orders None record ed. Patient TargetsNo targets recorded. Patient InstructionsNo instructions recorded. Reason for Referral None Reported. Results Created Date Observation Date Name Description Value Unit Range Abnormal Flag Note LastModifiedBy Organization Detail LastModifiedTime 06/13/20 24 05/01/2024 MRI, shoul bassam, w/o contr ast No observ ation record ed. [email or web address] Not Available 05/21 10:43:14 07/01/20 24 XR, shoul bassam, 2 or more view No observ ation record ed. [facility] [address] [place] [address], [place], [address], 07/01/2024 10:22:30 Result Notes None recorded. Problems Name Problem SNOMED Code Status Onset Date Resolution Date Notes Provider Name and Address Organization Details Recorded Time Pain of right shoulder joint [id number] 00 Active 2023 KAROLINA Garcia, [place] - [facility] 10:22:31 Problem Notes None recorded. Procedures Surgical History None recorded. Imaging Results Imaging Date Name Status LastModified by Organiz ation Details LastModified Time 05/01/2024 MRI, shoulder, w/o contrast completed [email or web address] Information not available 06/13/2024 10:43:14 07/01/2024 XR, shoulder, 2 or more view completed [email or web address] [address] [facility] [facility], [place], [address], 07/01/2024 10:22:30 Procedure Notes None recorded. Medical Equipment None Reported. Allergies Allergen ID Allergen Name Allergen Category Reaction Reaction Severity Criticality Documentation Date Start Date Code Code System Note Provider Name and Address Organization Details Recorded Time [address]39 aspirin medicatio n chest pain Not available Not available 07/01/2024 1191 RxNorm KAROLINA Garcia [employer] 10:20:47 Medications Name Sig Start Date Stop Date Status Note LastModified by Organization Details LastModified Time azithromyci n 250 mg tablet TAKE 2 TABLETS BY MOUTH TODAY, THEN TAKE 1 TABLET DAILY FOR 4 DAYS DIRECTED 07/01 completed Not Available Not Available Not Available prednisone 20 mg tablet TAKE 3 TABLETS BY MOUTH EVERY DAY FOR 5 DAYS 07/01 completed Not Available Not Available Not Available naproxen 500 mg tablet TAKE 1 TABLET BY MOUTH TWICE A DAY WITH FOOD 07/01 completed Not Available Not Available Not Available amoxicillin 875 mg-potassiu m clavulanate 125 mg tablet TAKE 1 TABLET BY MOUTH EVERY 12 HOURS FOR 7 DAYS 07/01 completed Not Available Not Available Not Available metaxalone 800 mg tablet TAKE 1 TABLET BY MOUTH EVERY NIGHT AT BEDTIME 07/01 completed Not Available Not Available Not Available Vitals Date Recorded Body height Body mass index (BMI) Body weight Pain severity - 0-10 verbal numeric rating [Score] - Reported Provider Name and Address Organization Details Last Updated DateTime 07/01/2024 165.1 cm 53.3 kg/m2 798815.56 g 0 KAROLINA Garcia [employer] 07/01/2024 10:19:58 Social History Question Answer Notes LastModified by Organizat ion Details LastModified Time Tobacco Smoking Status Never Smoker KAROLINA Garcia [facility] 07/01/2024 10:22:08 What Was The Date Of Your Most Recent Tobacco Screening? 07/01/2024 [email or web address] Information not available 07/01/2024 Sex: Unknown Functional Status Question Answer Note LastModified by Organization D etails LastModified Time What is your level of alcohol consumption? None [email or web address] Information not available 07/01/2024 Mental Status None recorded. Family History Relationship Description Onset Age of this Age Resolved Age Notes LastModified by Organization Details LastModified Time Mother Hypertensive disorder [email or web address] Not available 2023 10:21:39 Father Diabetes mellitus [email or web address] Not available 2023 10:21:47 Medical History No medical history recorded. Gynecological HistoryNo gynecological history recorded. Obstetrics History GPAL:G 0 P 0 0 0 0 Past Encounters Encounter ID Performer Location Encounter Start Date Encounter Closed Date Diagnosis/Indication Diagnosis SNOMED-CT Code Diagnosis ICD10 Code Diagnosis Note [id number] Solomon Kelley MD [facility] [address] [place] [address] 07/01/2024 09:57:46 07/01/2024 10:42:01 Pain of right shoulder joint [id number] M25.511 Health Concerns Section Related Observation LastModified by Organization Detai ls LastModified Time None Recorded Concern Status LastModified by Organization Details LastModified Time None Recorded Advance Directives Directive None Recorded Payers Encounter Date Sequence Insurance Name Policy Number Policy Rosenbaum Covered Member ID Rosenbaum Member ID Guarantor Name 07/01/2024 [facility] Stephanieelizabeth Cervantes OBGyn Episode No OBEpisode recorded.
[2025-04-03 22:39] VITALS: BP 146/88; PULSE 104; RESP 16; TEMP 36.7; O2SAT 99
[2025-04-03 23:12] LABS: Basophils Percent Auto 0.5 % (0.2-1.2); Eosinophils Absolute Auto 0.2 K/mm3 (0-0.3); Eosinophils Percent Auto 2.2 % (0-4.4); Hematocrit 42.3 % (37.0-47.0); Hemoglobin 13.1 g/dL (12.0-15.0); Immature Granulocyte Absolute 0.01 K/mm3 (0.00-0.031); Immature Granulocyte Percent A 0.1 % (0-0.5); Lymphocytes Absolute Auto 2.05 K/mm3 (0.9-3.2); Lymphocytes Percent Auto 26.5 % (18.3-44.2); Mean Corpuscular Hemoglobin 29.1 pg (26-34); Mean Platelet Volume 11.6 fl (7.4-10.4); Monocytes Absolute Auto 0.8 K/mm3 (0.1-0.6); Monocytes Percent Auto 9.9 % (2.6-8.5); Neutrophils Absolute Auto 4.7 K/mm3 (1.3-6.7); Neutrophils Percent Auto 60.8 % (45.5-73.1); Platelet Count Result 273 k/mm3 (150-375); Red Cell Distribution Width 14.7 % (11.5-14.5); White Blood Count 7.7 K/mm3 (4.5-10.0)
--- NOTE | 2025-04-03 23:15 | ED.PSYCH ---
HPI - Psych General Chief Complaint: Psychiatric Symptoms <Jerrod Garcias MD - Last Filed: 04/05/25 07:43> Stated Complaint: Suicidal thoughts, Anxiety <Jerrod Garcias MD - Last Filed: 04/05/25 07:43> Time Seen by Provider: 04/03/25 22:48 <Jerrod Garcias MD - Last Filed: 04/05/25 07:43> History of Present Illness HPI Narrative: 39-year-old female presenting to the emergency department for suicidal ideation wishing to end her life. Patient states she has been suicidal for last month and thought of multiple plans to try and kill yourself. Has not had any attempts but is scared for her life. Patient denies any somatic complaints otherwise and is expressing desire for psychiatric help. Denies any ingestion, alcohol use or drug use. No somatic symptoms such as fever, chills, chest pain, shortness a breath, abdominal pain, nausea, vomiting. Denies chance of . States she has had psychiatric issues before but this was 14 years ago did not require hospitalization. <Jerrod Garcias MD - Last Filed: 04/05/25 07:43> Related Data Home Medications: Home Medications Medication Instructions Recorded Confirmed Last Taken Type alprazolam 0.25 mg tablet (Xanax) 0.25 mg PO DAILY 04/04/25 04/04/25 04/03/25 History sertraline 50 mg tablet (Zoloft) 50 mg PO DAILY 04/04/25 04/04/25 04/03/25 History <Jerrod Garcias MD - Last Filed: 04/05/25 07:43> Allergies/Adverse Reactions: Allergies Allergy/AdvReac Type Severity Reaction Status Date / Time aspirin Allergy Mild Rash Verified 04/03/25 22:36 <Jerrod Garcias MD - Last Filed: 04/05/25 07:43> Review of Systems Review of Systems: As reviewed above in HPI <Jerrod Garcias MD - Last Filed: 04/05/25 07:43> PMFSH Past Medical History Medical History: Medical History Anxiety Depression induced hypertension PCOS (polycystic ovarian syndrome) <Jerrod Garcias MD - Last Filed: 04/05/25 07:43> Surgical History Surgical History: Surgical History History of classical section Hx of tubal ligation History of tonsillectomy <Jerrod Garcias MD - Last Filed: 04/05/25 07:43> Family History Family History: Family History Other Diabetes mellitus Hypertension <Jerrod Garcias MD - Last Filed: 04/05/25 07:43> Social History Social History: Social History Smoking status: Smoker, status unknown Tobacco type: cigarettes and e-cigarettes/vaping Second hand tobacco smoke exposure: Yes Alcohol intake: current Substance use type: does not use <Jerrod Garcias MD - Last Filed: 04/05/25 07:43> Exam Narrative: GENERAL: Morbidly obese but not any acute distress, tearful HEAD: [Normocephalic, atraumatic.] EYES: [PERRLA and EOMI.] ENT: Nares clear, no rhinorrhea or epistaxis. Mucous membranes moist. NECK: Supple. CHEST: [Clear to auscultation. No respiratory distress.] HEART: [Regular rate and rhythm]. No murmur heard. [Normal peripheral pulses.] ABDOMEN: [Soft, nondistended], [nontender], [No rigidity or guarding] EXTREMITIES: Normal range of motion. [No edema.] SKIN: Warm, dry, no rash. NEURO: [No focal deficits]. Alert and oriented [x3.] PSYCH: Tearful affect, expressing suicidality <Jerrod Garcias MD - Last Filed: 04/05/25 07:43> Course Vital Signs Vital signs: Vital Signs Temperature 36.7 C 04/03/25 22:39 Pulse Rate 104 H 04/03/25 22:39 Respiratory Rate 16 04/03/25 22:39 Blood Pressure 146/88 H 04/03/25 22:39 Pulse Oximetry 99 04/03/25 22:39 Oxygen Delivery Room Air 04/03/25 22:39 Temperature 36.6 C 04/04/25 16:34 Pulse Rate 82 04/04/25 16:34 Respiratory Rate 16 04/04/25 16:34 Blood Pressure 132/86 04/04/25 16:34 Pulse Oximetry 100 04/04/25 16:34 Oxygen Delivery Room Air 04/03/25 22:39 <Jerrod Garcias MD - Last Filed: 04/05/25 07:43> Vital Signs Temperature 36.7 C 04/03/25 22:39 Pulse Rate 104 H 04/03/25 22:39 Respiratory Rate 16 04/03/25 22:39 Blood Pressure 146/88 H 04/03/25 22:39 Pulse Oximetry 99 04/03/25 22:39 Oxygen Delivery Room Air 04/03/25 22:39 Temperature 36.6 C 04/04/25 16:34 Pulse Rate 82 04/04/25 16:34 Respiratory Rate 16 04/04/25 16:34 Blood Pressure 132/86 04/04/25 16:34 Pulse Oximetry 100 04/04/25 16:34 Oxygen Delivery Room Air 04/03/25 22:39 <Sahara Valverde III, DO - Last Filed: 04/04/25 12:39> MDM - Psych MDM Narrative Medical decision making narrative: 39-year-old female presenting to the emergency department with suicidal ideation and plan to kill herself. Patient states she has been suicidal for the last month and does not wish to be alive anymore. She has had previous psychiatric issues 14 years ago but not present any kind of medications. No history of psychiatric hospitalizations. Patient has no somatic complaints. Patient was tearful in her affect and her examination is only remarkable for morbid obesity. Vital signs are all normal without any concerning findings. She has no somatic complaints at this time. Psychiatric clearance laboratory studies were ordered including CBC, CMP, COVID test, urinalysis, TSH, drug screen, test. Elopement precautions and a bedside sitter was placed. Once patient is medically cleared psychiatry will be consulted for evaluation and disposition. Patient's workup is unrevealing. No leukocytosis or anemia. Normal platelet count. Creatinine is 1.10 without any significant kidney injury. Normal electrolytes. Normal LFTs. Normal glucose. Normal TSH. Urinalysis contaminated without any signs of active infection. Negative test. UDS positive for benzodiazepines. Negative alcohol level. Patient is medically cleared at this time for psychiatric evaluation. Crisis team was consulted, evaluated the patient for recommendations and likely placement. Psychiatry has evaluated the patient and recommended psychiatric hospitalization. At this time patient will go in voluntarily but she is high risk and in the event that she changes her mind or tries to elope she will be made involuntary status at that time. Patient made aware of the plan and comfortable. Awaiting accepting facility. Patient care signed out to Dr. Valverde pending final disposition and transfer. <Jerrod Garcias MD - Last Filed: 04/05/25 07:43> 39-year-old female presenting to the emergency department with suicidal ideation and plan to kill herself. Patient states she has been suicidal for the last month and does not wish to be alive anymore. She has had previous psychiatric issues 14 years ago but not present any kind of medications. No history of psychiatric hospitalizations. Patient has no somatic complaints. Patient was tearful in her affect and her examination is only remarkable for morbid obesity. Vital signs are all normal without any concerning findings. She has no somatic complaints at this time. Psychiatric clearance laboratory studies were ordered including CBC, CMP, COVID test, urinalysis, TSH, drug screen, test. Elopement precautions and a bedside sitter was placed. Once patient is medically cleared psychiatry will be consulted for evaluation and disposition. Patient's workup is unrevealing. No leukocytosis or anemia. Normal platelet count. Creatinine is 1.10 without any significant kidney injury. Normal electrolytes. Normal LFTs. Normal glucose. Normal TSH. Urinalysis contaminated without any signs of active infection. Negative test. UDS positive for benzodiazepines. Negative alcohol level. Patient is medically cleared at this time for psychiatric evaluation. Crisis team was consulted, evaluated the patient for recommendations and likely placement. Psychiatry has evaluated the patient and recommended psychiatric hospitalization. At this time patient will go in voluntarily but she is high risk and in the event that she changes her mind or tries to elope she will be made involuntary status at that time. Patient made aware of the plan and comfortable. Awaiting accepting facility. Patient care signed out to Dr. Valverde pending final disposition and transfer. Assumed Care at 0700. Pt stable during stay here. Pt accepted at [facility] in [place], Dr Magallon. <Sahara Valverde III, DO - Last Filed: 04/04/25 12:39> Medical Records Attestation: I reviewed the patient's medical records. <Jerrod Garcias MD - Last Filed: 04/05/25 07:43> Lab Data Result diagrams: 04/03/25 23:03 04/03/25 23:03 <Jerrod Garcias MD - Last Filed: 04/05/25 07:43> Labs: Lab Results 04/03/25 04/03/25 04/03/25 Range/Units 22:46 23:03 23:03 WBC 7.7 (4.5-10.0) K/mm3 RBC 4.50 (4.2-5.4) M/mm3 Hgb 13.1 (12.0-15.0) g/dL Hct 42.3 (37.0-47.0) % MCV 94.0 (80-100) fl MCH 29.1 (26-34) pg MCHC 31.0 L (32-36) g/dl RDW 14.7 H (11.5-14.5) % Plt Count 273 (150-375) k/mm3 MPV 11.6 H (7.4-10.4) fl Immature Gran % (Auto) 0.1 (0-0.5) % Neut % (Auto) 60.8 (45.5-73.1) % Lymph % (Auto) 26.5 (18.3-44.2) % [place] % (Auto) 9.9 H (2.6-8.5) % Eos % (Auto) 2.2 (0-4.4) % Baso % (Auto) 0.5 (0.2-1.2) % Lymph # (Auto) 2.05 (0.9-3.2) K/mm3 [place] # (Auto) 0.8 H (0.1-0.6) K/mm3 Eos # (Auto) 0.2 (0-0.3) K/mm3 Baso # (Auto) 0.0 (0.0-0.1) K/mm3 Abs Immat Gran (auto) 0.01 (0.00-0.031) K/mm3 Absolute Neuts (auto) 4.7 (1.3-6.7) K/mm3 Absolute Nucleated RBC 0.000 (0.0-0.012) K/mm3 Nucleated RBC % 0.0 (0.0-0.2) % Sodium 139 (137-145) mmol/L Potassium 3.8 (3.4-5.0) mmol/L Chloride 100 (98-107) mmol/L Carbon Dioxide 31 H (22-30) mmol/L Anion Gap 8 (4-12) mmol/L BUN 23 H (7-17) mg/dL Creatinine 1.10 H (0.7-1.0) mg/dL Estim Creat Clear Calc 87 ml/min Estimated GFR 55 L (59 - ) Glucose 99 (65-110) mg/dL Calcium 9.1 (8.4-10.2) mg/dL Total Bilirubin 1.0 (0.2-1.3) mg/dL AST 29 (14-36) U/L ALT 26 (6-35) U/L Alkaline Phosphatase 67 (38-126) U/L Total Protein 8.0 (6.3-8.2) g/dL Albumin 4.4 (3.5-5.1) g/dL TSH (Reflex) 4.590 (0.465-4.68) uIU/mL Free T4 Cancelled 1.25 Total T3 1.44 (0.97-1.69) NG/ML Urine Color Yellow (Yellow) Urine Appearance Cloudy H (Clear) Urine pH 5.0 (5.0-9.0) Ur Specific [place] 1.032 (1.001-1.035) Urine Protein Negative (Negative) mg/dL Urine Glucose (UA) Negative (Negative) mg/dL Urine Ketones 1+ H (Negative) mg/dL Ur Blood (Man) 2+ H (Negative) Urine Nitrate Negative (Negative) Urine Bilirubin Negative (Negative) Urine Urobilinogen 1.0 (<2.0) mg/dL Leukocyte Esterase Rfl Negative (Negative) ERICK/UL Urine RBC 3-5 H (0-2) /hpf Urine WBC 0-5 (0-3) /hpf Ur Squamous Epith Cells Few (Few) /hpf Urine Bacteria 1+ H /hpf Urine Casts 0-2 POC Urine HCG, Qual Negative (Negative) Urine Opiates Screen Negative (Negative) Urine Methadone Screen Negative (Negative) Ur Barbiturates Screen Negative (Negative) Ur Phencyclidine Scrn Negative (Negative) Ur Amphetamine Screen Negative (Negative) U Benzodiazepines Scrn Positive A (Negative) Urine Cocaine Screen Negative (Negative) U Cannabinoids Screen Negative (Negative) Ethyl Alcohol < 10 (<10) mg/dL Influenza A (RT-PCR) Negative (Negative) Influenza B (RT-PCR) Negative (Negative) RSV (RT-PCR) Negative (Negative) SARS-CoV-2 RNA (RT-PCR) Negative (Negative) <Jerrod Garcias MD - Last Filed: 04/05/25 07:43> Lab Results 04/03/25 04/03/25 04/03/25 Range/Units 22:46 23:03 23:03 WBC 7.7 (4.5-10.0) K/mm3 RBC 4.50 (4.2-5.4) M/mm3 Hgb 13.1 (12.0-15.0) g/dL Hct 42.3 (37.0-47.0) % MCV 94.0 (80-100) fl MCH 29.1 (26-34) pg MCHC 31.0 L (32-36) g/dl RDW 14.7 H (11.5-14.5) % Plt Count 273 (150-375) k/mm3 MPV 11.6 H (7.4-10.4) fl Immature Gran % (Auto) 0.1 (0-0.5) % Neut % (Auto) 60.8 (45.5-73.1) % Lymph % (Auto) 26.5 (18.3-44.2) % [place] % (Auto) 9.9 H (2.6-8.5) % Eos % (Auto) 2.2 (0-4.4) % Baso % (Auto) 0.5 (0.2-1.2) % Lymph # (Auto) 2.05 (0.9-3.2) K/mm3 [place] # (Auto) 0.8 H (0.1-0.6) K/mm3 Eos # (Auto) 0.2 (0-0.3) K/mm3 Baso # (Auto) 0.0 (0.0-0.1) K/mm3 Abs Immat Gran (auto) 0.01 (0.00-0.031) K/mm3 Absolute Neuts (auto) 4.7 (1.3-6.7) K/mm3 Absolute Nucleated RBC 0.000 (0.0-0.012) K/mm3 Nucleated RBC % 0.0 (0.0-0.2) % Sodium 139 (137-145) mmol/L Potassium 3.8 (3.4-5.0) mmol/L Chloride 100 (98-107) mmol/L Carbon Dioxide 31 H (22-30) mmol/L Anion Gap 8 (4-12) mmol/L BUN 23 H (7-17) mg/dL Creatinine 1.10 H (0.7-1.0) mg/dL Estim Creat Clear Calc 87 ml/min Estimated GFR 55 L (59 - ) Glucose 99 (65-110) mg/dL Calcium 9.1 (8.4-10.2) mg/dL Total Bilirubin 1.0 (0.2-1.3) mg/dL AST 29 (14-36) U/L ALT 26 (6-35) U/L Alkaline Phosphatase 67 (38-126) U/L Total Protein 8.0 (6.3-8.2) g/dL Albumin 4.4 (3.5-5.1) g/dL TSH (Reflex) 4.590 (0.465-4.68) uIU/mL Free T4 Cancelled 1.25 Total T3 1.44 (0.97-1.69) NG/ML Urine Color Yellow (Yellow) Urine Appearance Cloudy H (Clear) Urine pH 5.0 (5.0-9.0) Ur Specific [place] 1.032 (1.001-1.035) Urine Protein Negative (Negative) mg/dL Urine Glucose (UA) Negative (Negative) mg/dL Urine Ketones 1+ H (Negative) mg/dL Ur Blood (Man) 2+ H (Negative) Urine Nitrate Negative (Negative) Urine Bilirubin Negative (Negative) Urine Urobilinogen 1.0 (<2.0) mg/dL Leukocyte Esterase Rfl Negative (Negative) ERICK/UL Urine RBC 3-5 H (0-2) /hpf Urine WBC 0-5 (0-3) /hpf Ur Squamous Epith Cells Few (Few) /hpf Urine Bacteria 1+ H /hpf Urine Casts 0-2 POC Urine HCG, Qual Negative (Negative) Urine Opiates Screen Negative (Negative) Urine Methadone Screen Negative (Negative) Ur Barbiturates Screen Negative (Negative) Ur Phencyclidine Scrn Negative (Negative) Ur Amphetamine Screen Negative (Negative) U Benzodiazepines Scrn Positive A (Negative) Urine Cocaine Screen Negative (Negative) U Cannabinoids Screen Negative (Negative) Ethyl Alcohol < 10 (<10) mg/dL Influenza A (RT-PCR) Negative (Negative) Influenza B (RT-PCR) Negative (Negative) RSV (RT-PCR) Negative (Negative) SARS-CoV-2 RNA (RT-PCR) Negative (Negative) <Sahara Valverde III, DO - Last Filed: 04/04/25 12:39> Discharge Plan Discharge Clinical Impression: At high risk for suicide, Suicide ideation <Jerrod Garcias MD - Last Filed: 04/05/25 07:43> Patient Disposition: Psychiatric Hosp <Jerrod Garcias MD - Last Filed: 04/05/25 07:43> Condition: Stable <Jerrod Garcias MD - Last Filed: 04/05/25 07:43> Patient Language: Citizen Of [place] <Jerrod Garcias MD - Last Filed: 04/05/25 07:43> Prescriptions: No Action sertraline [Zoloft] 50 mg tablet 50 mg PO DAILY alprazolam [Xanax] 0.25 mg tablet 0.25 mg PO DAILY <Jerrod Garcias MD - Last Filed: 04/05/25 07:43> Follow-up/Referrals: Kinza,Guido Norris MD [Primary Care Provider] - <Jerrod Garcias MD - Last Filed: 04/05/25 07:43>
[2025-04-03 23:16] LABS: Add Urine Microscopic? YES; Appearance Urine Cloudy (Clear); Bacteria Urine 1+ /hpf; Bilirubin Urine Negative (Negative); Blood Urine 2+ (Negative); Color Urine Yellow (Yellow); Glucose Urine UA Negative (Negative); Ketones Urine 1+ mg/dL (Negative); Leukocyte Esterase Ur Negative LEU/UL (Negative); Nitrate Urine Negative (Negative); Non Pathogenic Casts 0-2; Protein Urine Negative (Negative); Specific Grav Ur 1.032 (1.001-1.035); Squamous Epithelial Cell Urine Few /hpf (Few); WBC Urine 0-5 /hpf (0-3)
[2025-04-03 23:17] LABS: BEDSIDEPREGUCG Negative (Negative)
[2025-04-03 23:21] LABS: Ethanol < 10 mg/dL (<10)
[2025-04-03 23:22] LABS: Alanine Aminotransferase 26 U/L (6-35); Albumin Level 4.4 g/dL (3.5-5.1); Alkaline Phosphatase 67 U/L (38-126); Anion Gap 8 mmol/L (4-12); Aspartate Amino Transferase 29 U/L (14-36); Blood Urea Nitrogen 23 mg/dL (7-17); Calcium 9.1 mg/dL (8.4-10.2); Carbon Dioxide 31 mmol/L (22-30); Chloride 100 mmol/L (98-107); Estimated CRCL calculation 87 ml/min; Estimated Glomerular Filt Rate 55; Glucose 99 mg/dL (65-110); Potassium 3.8 mmol/L (3.4-5.0); Sodium 139 mmol/L (137-145)
--- OUTSIDE RECORDS SUMMARY | 2025-04-03 23:25 | XMS_ITS | Patient Health Record ---
Author Organization [facility] Address [address] [place] [address] Care Team Providers Care Addictions Counselor Assistant Name Role Phone Kvng Barnett Primary Care Provider [phone] GurjitEnid Unavailable [phone] Allergies Allergen (clinical drug ingredient) Drug/Non Drug Allergy documented on EMR Reaction Allergy Type Onset Date Status aspirin Aspirin Chest pain Drug Allergy Active Results Component Value Reference Range Notes 12 Panel Urine Drug Screen Reviewed date:03/20/2025 12:33:15 PM Interpretation: Performing Lab: Notes/Report: THC neg ANJANA neg MOP (OPI) neg AMP neg MET neg BAR neg BZO neg MDMA neg MTD neg OXY neg PCP neg BUP neg Reason For Referral No Information Medications Medication SIG (Take, Route, Frequency, Duration) Notes Start Date End Date Status ALPRAZolam 0.25 MG 1 tablet Orally Once daily for 30 days As needed 03/11/2025 Active Sertraline HCl 50 MG 1 tablet Orally Onc e a day for 30 days 03/11/2025 Active Melatonin 10 MG once daily at bedtim e Orally Not-Taking Social History Tobacco Use: Social History Observation Description Date Details (start date - stop date) Never Smoker NA - NA Sex Assigned At : Social History Observation Description Sex Assigned At Female PRAPARE Question Answer Notes Date Completed/Updated: 03/17/2025 What is your current housing situation? I have h ousing Are you worried about losing your housing? No What is the highest level of school that you have finished? 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 Check all that apply Utilities Has lack of transportation k ept you from medical appointments, meetings, work or from getting things needed for daily living? No How often do you see or talk to people that you care about and feel close to? (For example: talking to friends on the phone, visiting friends or family, going to religious or club meetings) More than 5 times a week How stressed are you? Stress is when someone feels tense, nervous, anxious, or can\t sleep at night because their mind is troubled Somewhat In the past year have you sp ent more than 2 nights in a row in a halfway, assisted, nursing home center, or juvenile correctional facility? No Do you feel physically and e motionally safe where you currently live? Yes In the past year, have you b een afraid of your partner or ex-partner? Yes PRAPARE Score: 4 Tobacco Control (Standard) Question Answer Notes Tobacco use: Nonsmoker Problems Problem Type SNOMED Code ICD Code Onset Dates Problem Status W/U Status Risk Notes Problem Generalized anxiety disorder (99932625) Generalized anxiety disorder (F41.1) Active confirmed r/o panic disorder Problem Intestinal infectious disease (821642039) Contact with and (suspected) exposure to other communicable diseases (Z20.89) Active confirmed Problem Reactive airway disease (631758846153) Reactive airway disease (J45.909) Active confirmed Problem Over weight (E66.3) Active confirmed Vital Signs Heart Rate 79 /min 06/26/2024 Respiratory Rate 16 /min 06/26/2024 Blood pressure diastolic 78 mm Hg 03/11/2025 Oximetry 98 % 06/26/2024 Height 68 in 03/11/2025 Blood pressure systolic 120 mm Hg 03/11/2025 Weight 320.8 lbs 03/11/2025 BMI 48.77 kg/m2 03/11/2025 Encounters Encounter Location Date Provider Diagnosis [address] [place] [address] 06/26/2024 Kvng Barnett Nutritional counseling Z71.3 ; Reactive airway disease J45.909 and Contact with and (suspected) exposure to other communicable diseases Z20.[address] [place] [address] 02/27/2025 Enid Cagle Generalized anxiety disorder F41.1 and Over weight E66.3 [facility] [address] [place] [address] 03/11/2025 Enid Cagle Generalized anxiety disorder F41.1 and Over weight E66.[address] [place] [address] 02/27/2025 Kvng Barnett Contact with and (suspected) exposure to other communicable diseases Z20.89 [facility] [address] [place] [address] 02/27/[address] [place] [address] [place] [address] 03/03/[address] [place] [address] 03/05/2025 [facility] [address], [place] [address] 03[facility] [address] [place] [address] 03/18/2025 Kvng Barnett Assessments Encounter Date Diagnosis (ICD Code) Assessment Notes Treatment Notes Treatment Clinical Notes Section Notes 03/11/2025 Generalized anxiety disorder (ICD-10 - F41.1) r/o panic disorder Sertraline started. Reviewed side effects which may include increased risk of suicide, anxiety, sleep disturbance, nausea, dry mouth, increased bruising, sexual dysfunction, dian, wt gain, and serotonin syndrome. Need to notify provider if planning or experiencing . Benzodiazepine use is intended for short-term uset. Long-term use of benzos has been shown to lead to dependence, rebound anxiety/agitation, and withdrawal symptoms that include sleep disturbance, irritability, increased tension and anxiety, panic attacks, hand tremor, sweating, difficulty in concentration, dry retching, and nausea, some weight loss, palpitations, headache, muscular pain and stiffness, and a host of perceptual changes. Also Benzodiazepines are not recommended for long-term use due to potential dangerous side effects that include increased drowsiness, memory impairment, increased irritability, mood changes, and worsening of PTSD symptoms. Benzodiazepines can increase respiratory depression which can aggravate conditions such as sleep apnea and COPD leading to possible . They should also never be combined with alcohol, pain medications (especially opioids), or street drugs because this can lead to overdose and possible . If you are under the influence of benzodiazepines while operating a motor vehicle and are involved in a car accident you can be charged with driving while intoxicated. Benzodiazepine use can increase unsteady gait thereby increasing the risk of falls, broken bones, and concussions. Nausea/vomi ting to Lexapro possible situational depression 02/27/2025 Generalized anxiety disorder (ICD-10 - F41.1) r/o panic disorder Start Lexapro. Reviewed side effects which may include increased risk of suicide, anxiety, sleep disturbance, nausea, dry mouth, increased bruising, sexual dysfunction, dian, wt gain, and serotonin syndrome. Need to notify provider if planning or experiencing . Benzodiazepine use is intended for short-term use, up to 3-4 weeks at most. Long-term use of benzos has been shown to lead to dependence, rebound anxiety/agitation, and withdrawal symptoms that include sleep disturbance, irritability, increased tension and anxiety, panic attacks, hand tremor, sweating, difficulty in concentration, dry retching, and nausea, some weight loss, palpitations, headache, muscular pain and stiffness, and a host of perceptual changes. Also Benzodiazepines are not recommended for long-term use due to potential dangerous side effects that include increased drowsiness, memory impairment, increased irritability, mood changes, and worsening of PTSD symptoms. Benzodiazepines can increase respiratory depression which can aggravate conditions such as sleep apnea and COPD leading to possible . They should also never be combined with alcohol, pain medications (especially opioids), or street drugs because this can lead to overdose and possible . If you are under the influence of benzodiazepines while operating a motor vehicle and are involved in a car accident you can be charged with driving while intoxicated. Benzodiazepine use can increase unsteady gait thereby increasing the risk of falls, broken bones, and concussions. possible situational depression 02/27/2025 Contact with and (suspected) exposure to other communicable diseases (ICD-10 - Z20.89) Patient Educated with: HIV testing Care Instructions.pdf (HIV testing Care Instructions.pdf) 06/26/2024 Reactive airway disease (ICD-10 - J45.909) 06/26/2024 Nutritional counseling (ICD-10 - Z71.3) 06/26/2024 Contact with and (suspected) exposure to other communicable diseases (ICD-10 - Z20.89) 02/27/2025 Over weight (ICD-10 - E66.3) possible situational depression 03/11/2025 Over weight (ICD-10 - E66.3) possible situational depression 02/27/2025 Other Reasons, potential benefits, potential risks, interactions and side effects of all medications were discussed. The Patient/Guardian asked appropriate questions, appeared to understand the answers, and decided to accept the treatment and continue being followed. Alternatives and expected course without treatment were reviewed. The Patient/Guardian is aware of the need to contact the office or return for an earlier appointment if any problems or concerns arise. May also contact the 24-hour crisis hotline ([facility]), refer to the closest emergency room or call 911 if new symptoms arise of existing symptoms worsen. The Patient/Guardian is aware that this would apply to symptoms like: suicidal ideation, homicidal ideation, high risk behaviors, manic symptoms, psychotic symptoms, physical symptoms, or any other symptoms that may be dangerous to self or others. Greater than 50% of time spent on coordination and counseling where psychopharmacology as well as psychotherapeutic interventions were discussed along with review of treatments in the past. Education provided concerning need for adequate hydration. Patient/Guardian verbalized understanding of education, treatment plan and follow up. This session was completed telephonically with client/parental/guard jessica consent: Unable to determine movement status, assess appearance, affect, AIMS, or vital signs. possible situational depression 03/11/2025 Other Reasons, potential benefits, potential risks, interactions and side effects of all medications were discussed. The Patient/Guardian asked appropriate questions, appeared to understand the answers, and decided to accept the treatment and continue being followed. Alternatives and expected course without treatment were reviewed. The Patient/Guardian is aware of the need to contact the office or return for an earlier appointment if any problems or concerns arise. May also contact the 24-hour crisis hotline ([facility]), refer to the closest emergency room or call 911 if new symptoms arise of existing symptoms worsen. The Patient/Guardian is aware that this would apply to symptoms like: suicidal ideation, homicidal ideation, high risk behaviors, manic symptoms, psychotic symptoms, physical symptoms, or any other symptoms that may be dangerous to self or others. Greater than 50% of time spent on coordination and counseling where psychopharmacology as well as psychotherapeutic interventions were discussed along with review of treatments in the past. Education provided concerning need for adequate hydration. Patient/Guardian verbalized understanding of education, treatment plan and follow up. possible situational depression Plan Of Treatment Future Test Test Name Order Date HIV Screen *HIV 1, 2 Ab, p24 Ag ([id number]) 03/06/2025 Medical (General) History Medical History History ICD Code anxiety Surgical History Surgery Date(Month/Year) Adenoidectomy, tonsillectomy 1996 2004,2010,2012 cholecystectomy 2020
--- OUTSIDE RECORDS SUMMARY | 2025-04-03 23:26 | XMS_ITS ---
Author Organization [facility] Address [address] [place] [address] Care Team Providers Care Sash Assembler Name Role Phone Kvng Barnett Primary Care Provider Enid Cagle [phone] REASON FOR VISIT 4 week F/U Social History Sex Assigned At : Social History Observation Description Sex Assigned At Female Encounters Encounter Location Date Provider Diagnosis [address] [address] 03/24/2025 Enid Cagle Plan Of Treatment No Information Progress Notes * Avila PARADAeDOB:1984 (39 yo F)Acc No.[id number]:03/24/2025 UNLOCKED PROGRESS NOTE Patient: Rick ROSA Provider: RYLEY Calderon, TREATMENT SPECIALIST, CYLINDER PRESS OPERATOR APPRENTICE-C :1985 A ge:39 Y S ex:Female Date:03/24/2025 Address:[address] [place], [place] [address] Pcp:Kvng Barnett Subjective: * Chief Complaints: * 1 . 4 week F/U. * Medical History: Objective: * Vitals: Assessment: Plan: * Treatment: * * Electronic signature of Gabriele Cagle , [id number] on 04/03/2025 at 11:26 PM CDT Sign off status: Pending * Provider: P aige Gurjit, MSN, TREATMENT SPECIALIST, CYLINDER PRESS OPERATOR APPRENTICE-C Date: 0 03/24/2025 Generated for Christopher holliday/Bernabe/Martinitting on: 0 04/03/2025 11:26 PM CDT
[2025-04-03 23:33] LABS: Amphetamine Screen Urine Negative (Negative); Barbiturate Screen Urine Negative (Negative); Benzodiazepines Screen Urine Positive (Negative); Cannabinoid Screen Urine Negative (Negative); Cocaine Screen Urine Negative (Negative); Methadone Screen Urine Negative (Negative); Opiate Screen Urine Negative (Negative); Phencyclidine Screen Urine Negative (Negative)
--- NOTE | 2025-04-04 00:04 | PC.NURSE ---
pt medically cleared by nazario Garcias MD
[2025-04-04 00:19] LABS: Influenza A QL RT-PCR Negative (Negative); Influenza B QL RT-PCR Negative (Negative); RSV RNA, RT-PCR Negative (Negative); SARS-CoV-2 RNA PCR Negative (Negative)
--- NOTE | 2025-04-04 04:00 | PC.NURSE ---
Pt attempted to ask this rn if she could leave now. I am voluntary, so i can leave. This rn verbalized that she had a few indicators for being placed inpatient, but I could speak with moriah to see if she would allow her to leave. Magda updated and back at pt bedside at this time.
[2025-04-04 05:11] LABS: Free T4 Free Thyroxine Reflex 1.25 ng/dL (0.78-2.19)
--- NOTE | 2025-04-04 05:23 | PC.NURSE ---
[facility] returned call - do not have an appropiate bed for this patient.
--- NOTE | 2025-04-04 05:24 | PC.NURSE ---
sitter to remain at bedside for elopement purposes in case she becomes no longer si/hi.
[2025-04-04 05:57] LABS: Total Triiodothyronine (T3) 1.44 NG/ML (0.97-1.69)
--- NOTE | 2025-04-04 08:18 | PC.NURSE ---
Pt called this RN into her room and states I was told I'm a voluntary admission so that should mean I can leave at anytime I want. Pt then proceeds to inform this RN she was lied to by crisis and this is why people don't get help because they get stuck in situations like this. Pt is currently sitting on her bed and agitated. Offered her breakfast and the use of haq phone and she states I want my own phone. Just spoke with Kayli at crisis to follow up on placement and inform her an involuntary was not filled out. Kayli reported she is going to get on the situation with her supervisor concrete stone finishing and this RN back.
[2025-04-04] MEDS: SERTRALINE HCL 50 MG TABLET PO (10:53)
[2025-04-04 16:34] VITALS: BP 132/86; PULSE 82; RESP 16; TEMP 36.6; O2SAT 100
== END 2025-04-04 16:34 ==
PROVIDERS: Emergency Provider Student in an Organized Health Care Education/Training Program; PCP Internal Medicine
DX: R45.851 Suicidal ideations (principal); F17.290 Nicotine dependence, other tobacco product, uncomplicated; Z20.822 Contact with and (suspected) exposure to COVID-19; Z79.899 Other long term (current) drug therapy
CPT/HCPCS: 36415; 80053; 80307; 81001; 81025; 82077; 84439; 84443; 84480; 85025; 87637; 99285; A9270

== ENCOUNTER 2025-08-26 14:53 | Emergency (ER) | payer SELFPAY ==
--- OUTSIDE RECORDS SUMMARY | 2025-03-24 04:40 | XMS_ITS ---
Author Organization [facility] Address [address] [place] [address] Care Team Providers Care Aviation Neuropsychologist Name Role Phone Kvng Barnett Primary Care Provider Enid Cagle [phone] REASON FOR VISIT 4 week F/U Social History Sex Assigned At : Social History Observation Description Sex Assigned At Female Encounters Encounter Location Date Provider Diagnosis [address] [address] 03/24/2025 Enid Cagle Plan Of Treatment No Information Progress Notes * Avila PARADAeDOB:1984 (40 yo F)Acc No.[id number]:03/24/2025 UNLOCKED PROGRESS NOTE Patient: Rick ROSA Provider: RYLEY Calderon, LIQUID HYDROGEN PLANT OPERATOR, SALES P[employer]TER-C :1985 A ge:39 Y S ex:Female Date:03/24/2025 Address:[address] [place], [place] [address] Pcp:Kvng Barnett Subjective: * Chief Complaints: * 1 . 4 week F/U. * Medical History: Objective: * Vitals: Assessment: Plan: * Treatment: * * Electronic signature of Gabriele Cagle , [id number] on 08/26/2025 at 03:48 PM CDT Sign off status: Pending * Provider: P aige Gurjit, MSN, LIQUID HYDROGEN PLANT OPERATOR, SALES PORTER-C Date: 0 03/24/2025 Generated for Christopher holliday/Bernabe/Lupe on: 1 03:48 PM CDT
--- OUTSIDE RECORDS SUMMARY | 2025-05-02 06:20 | XMS_ITS ---
Author Organization [facility] Address [address] [place] [address] Care Team Providers Care Manager Delivery Name Role Phone Kvng Barnett Primary Care Provider Gurjit, Enid Teixeira [phone] REASON FOR VISIT Hospital F/U Social History Sex Assigned At : Social History Observation Description Sex Assigned At Female Encounters Encounter Location Date Provider Diagnosis [address] [place] [address] 05/02/2025 Kvng Barnett Plan Of Treatment No Information Progress Notes * Avila PARADAeDOB:1984 (40 yo F)Acc No.[id number]:05/02/2025 UNLOCKED PROGRESS NOTE Progress Note Patient: Rick ROSA Provider: Joslyn Barnett :1985 A ge:39 Y S ex:Female Date:05/02/2025 [facility] Subjective: * Chief Complaints: * 1 . Hospital F/U. * Medical History: Objective: * Vitals: Assessment: Plan: * Treatment: * * Electronic signature of Astrid Barnett , [id number] on 08/26/2025 at 03:48 PM CDT Sign off status: Pending * Provider: Joslyn Barnett Date: 0 05/02/2025 Generated for Christopher holliday/Bernabe/eTransmitting on: 1 03:48 PM CDT
--- NOTE | ~2025-08-26 | XR_ITS ---
EXAMINATION: XR chest 1V portable COMPARISON: No comparisons available. HISTORY: chest pain FINDINGS: The lungs are clear, no effusion. No pneumothorax. Heart is normal size. Mediastinal and hilar contours are within normal limits. Bony thorax no acute abnormality. Miscellaneous: None Impression: No acute cardiopulmonary abnormality. Reviewed, dictated and finalized at location P. Impression: No acute cardiopulmonary abnormality.
--- NOTE | 2025-08-26 14:58 | ECG_ITS ---
Test Date: 2025-08-26 15:01:41 Measurements Intervals [place] Rate: 52 P: 36 MS: 140 QRS: 47 QRSD: 89 T: 13 QT: 385 QTc: 359 Interpretive Statements SINUS BRADYCARDIA WITH SINUS ARRHYTHMIA BORDERLINE ST ABNORMALITY- INFERIOR LEADS BORDERLINE ECG Compared to ECG 06/11/2024 19:25:47 HAERT RATE HAS DECREASED Electronically Signed On 08-26-2025 15:03:50 CDT by Kory Elliott D.O.
[2025-08-26 14:59] VITALS: BP 143/100; PULSE 54; RESP 16; TEMP 36.8; O2SAT 100
[2025-08-26 15:13] LABS: Hematocrit 36.1 % (37.0-47.0); Hemoglobin 11.6 g/dL (12.0-15.0); Immature Granulocyte Percent A 0.3 % (0-0.5); Lymphocytes Absolute Auto 1.31 K/mm3 (0.9-3.2); Mean Corpuscular HGB Conc 32.1 g/dl (32-36); Mean Corpuscular Hemoglobin 29.3 pg (26-34); Mean Corpuscular Volume 91.2 fl (80-100); Nucleated Red Blood Cells Absolute Auto 0.000 K/mm3 (0.0-0.012); Nucleated Red Blood Cells Perc 0.0 % (0.0-0.2); Platelet Count Result 168 k/mm3 (150-375); Red Blood Count 3.96 M/mm3 (4.2-5.4); White Blood Count 3.1 K/mm3 (4.5-10.0)
--- NOTE | 2025-08-26 15:23 | ED.CHESTPAIN ---
HPI - Chest Pain General Chief Complaint: Chest Pain Stated Complaint: chest pain since monday Time Seen by Provider: 08/26/25 15:01 History of Present Illness HPI narrative: For last few days, patient has pain to her left chest, feels like it is going to her shoulder, initially was only worse when she moved her left shoulder, now is constant. Does have a history of anxiety but is not sure if it is just anxiety or something else. Does occasionally have symptoms like this. No nausea vomiting or abdominal pain. Related Data Home Medications ?Medication ?Instructions ?Recorded ?Confirmed ?Last Taken ?Type alprazolam 0.25 mg tablet (Xanax) 0.25 mg PO DAILY 04/04/25 04/04/25 04/03/25 History sertraline 50 mg tablet (Zoloft) 50 mg PO DAILY 04/04/25 04/04/25 04/03/25 History Allergies Allergy/AdvReac Type Severity Reaction Status Date / Time aspirin Allergy Mild Rash Verified 08/26/25 15:03 Review of Systems Review of Systems: All systems reviewed & are unremarkable except as noted in HPI and below PMFSH Past Medical History Medical History Anxiety Depression induced hypertension PCOS (polycystic ovarian syndrome) Surgical History Surgical History History of classical section Hx of tubal ligation History of tonsillectomy Family History Family History Other Diabetes mellitus Hypertension Social History Social History Smoking status: Smoker, status unknown Tobacco type: cigarettes and e-cigarettes/vaping Second hand tobacco smoke exposure: Yes Alcohol intake: current Substance use type: does not use Exam Narrative: EXAMINATION OF ORGAN SYSTEMS/BODY AREAS: Constitutional: Vital signs per nursing GENERAL:[No acute distress, non-toxic appearing.] HEAD: Normal with no signs of head trauma. EYES: EOMI, conjunctiva normal ENT: Hearing grossly intact LUNGS: Nonlabored breathing. Clear to auscultation bilaterally HEART: [Regular rate and rhythm] ABD: [Soft], [nontender to palpation] EXT: Normal range of motion SKIN: [No rashes or lesions.] NEURO: [Alert and oriented x 3. No gross focal sensory or strength deficits.] PSYCH: Normal affect Course Vital Signs Vital signs: Vital Signs Temperature 98.2 F 08/26/25 14:59 Pulse Rate 54 L 08/26/25 14:59 Respiratory Rate 16 08/26/25 14:59 Blood Pressure 143/100 H 08/26/25 14:59 Pulse Oximetry 100 08/26/25 14:59 Oxygen Delivery Room Air 08/26/25 14:59 Temperature 98.2 F 08/26/25 14:59 Pulse Rate 54 L 08/26/25 14:59 Respiratory Rate 16 08/26/25 14:59 Blood Pressure 143/100 H 08/26/25 14:59 Pulse Oximetry 100 08/26/25 14:59 Oxygen Delivery Room Air 08/26/25 14:59 MDM - Chest Pain MDM Narrative Medical decision making narrative: ED COURSE AND MEDICAL DECISION MAKINF presenting with chest pain. EKG done in triage negative for acute ischemic changes. Cardiac workup is initiated. EKG: Performed in triage and interpreted by me. Normal sinus rhythm. Rate 52. Normal axis. NV normal. QRS duration normal. QTc normal. No pathologic Q waves. No ST segment elevation or depression to suggest acute ischemia. Does have some flattening/inverted T-waves in lead 3, I did review prior EKG, similar appearing EKG from prior. HEART score is 0 with no acute ischemic changes on EKG and negative troponin making ACS unlikely. Wells low risk with negative PERC making PE unlikely. Presentation not consistent with dissection or aneurysm without radiation of pain or pulse deficits. CXR negative for mediastinal widening. No abdominal pain or signs of sepsis that would be concerning for esophageal perforation or mediastinitis. No cardiomegaly or JVD to suggest pericardial effusion/tamponade. HEART Score: [0]. On repeat evaluation just prior to discharge, the patient is no acute distress. I had a long discussion with the patient and with shared decision making, she is comfortable with outpatient management. Declines pain medicine at this time. She was given clear return instructions by myself in person as well as on discharge paperwork. Lab Data 08/26/25 15:05 08/26/25 15:05 Labs: Lab Results 10/07/25 Range/Units 15:05 WBC 3.1 L (4.5-10.0) K/mm3 RBC 3.96 L (4.2-5.4) M/mm3 Hgb 11.6 L (12.0-15.0) g/dL Hct 36.1 L (37.0-47.0) % MCV 91.2 (80-100) fl MCH 29.3 (26-34) pg MCHC 32.1 (32-36) g/dl RDW 13.7 (11.5-14.5) % Plt Count 168 (150-375) k/mm3 MPV 11.5 H (7.4-10.4) fl Immature Gran % (Auto) 0.3 (0-0.5) % Neut % (Auto) 46.3 (45.5-73.1) % Lymph % (Auto) 41.7 (18.3-44.2) % [place] % (Auto) 10.8 H (2.6-8.5) % Eos % (Auto) 0.6 (0-4.4) % Baso % (Auto) 0.3 (0.2-1.2) % Lymph # (Auto) 1.31 (0.9-3.2) K/mm3 [place] # (Auto) 0.3 (0.1-0.6) K/mm3 Eos # (Auto) 0.0 (0-0.3) K/mm3 Baso # (Auto) 0.0 (0.0-0.1) K/mm3 Abs Immat Gran (auto) 0.01 (0.00-0.031) K/mm3 Absolute Neuts (auto) 1.5 (1.3-6.7) K/mm3 Absolute Nucleated RBC 0.000 (0.0-0.012) K/mm3 Nucleated RBC % 0.0 (0.0-0.2) % PT 13.9 (11.1-14.7) Seconds INR 1.1 APTT 28.0 (22.3-36.8) Seconds Sodium 138 (137-145) mmol/L Potassium 3.6 (3.4-5.0) mmol/L Chloride 101 (98-107) mmol/L Carbon Dioxide 32 H (22-30) mmol/L Anion Gap 5 (4-12) mmol/L BUN 17 (7-17) mg/dL Creatinine 0.98 (0.7-1.0) mg/dL Estim Creat Clear Calc 90 ml/min Estimated GFR > 60 (59 - ) Glucose 86 (65-110) mg/dL Calcium 8.8 (8.4-10.2) mg/dL Total Bilirubin 0.6 (0.2-1.3) mg/dL AST 30 (14-36) U/L ALT 27 (6-35) U/L Alkaline Phosphatase 59 (38-126) U/L Troponin I < 0.012 (0.000-0.034) ng/mL Total Protein 7.0 (6.3-8.2) g/dL Albumin 4.0 (3.5-5.1) g/dL Lipase 56 (23-300) U/L Discharge Plan Discharge Clinical Impression: Atypical chest pain Patient Disposition: Home Condition: Stable Instructions: Chest Pain (ED) Additional Instructions: Please follow up with your doctor; you can always return for any further issues. Patient Language: Indian Prescriptions: No Action sertraline [Zoloft] 50 mg tablet 50 mg PO DAILY alprazolam [Xanax] 0.25 mg tablet 0.25 mg PO DAILY Follow-up/Referrals: Jaycob,Antonio Holley MD [Primary Care Provider, Unknown]
[2025-08-26 15:24] LABS: INR 1.1; Prothrombin Time 13.9 Seconds (11.1-14.7)
[2025-08-26 15:25] LABS: Partial Thromboplastin Time 28.0 Seconds (22.3-36.8)
[2025-08-26 15:31] LABS: Alanine Aminotransferase 27 U/L (6-35); Albumin Level 4.0 g/dL (3.5-5.1); Alkaline Phosphatase 59 U/L (38-126); Anion Gap 5 mmol/L (4-12); Aspartate Amino Transferase 30 U/L (14-36); Bilirubin,Total 0.6 mg/dL (0.2-1.3); Blood Urea Nitrogen 17 mg/dL (7-17); Calcium 8.8 mg/dL (8.4-10.2); Carbon Dioxide 32 mmol/L (22-30); Chloride 101 mmol/L (98-107); Estimated CRCL calculation 90 ml/min; Estimated Glomerular Filt Rate > 60; Glucose 86 mg/dL (65-110); Lipase 56 U/L (23-300); Potassium 3.6 mmol/L (3.4-5.0); Sodium 138 mmol/L (137-145); Total Protein 7.0 g/dL (6.3-8.2)
[2025-08-26 15:41] LABS: Troponin I < 0.012 ng/mL (0.000-0.034)
--- OUTSIDE RECORDS SUMMARY | 2025-08-26 15:48 | XMS_ITS | Encounter Summary ---
Author Organization [facility] Address [address] [place] [address] Care Team Providers Care Documentation Improvement Specialist Name Role Phone Guido Echols MD Primary Care Provider Encounter Details Date Type Department Care Team (Late st Contact Info) Description 08/20/2021 Prep for Procedure [facility] Pre-Admission Testing [facility] [place] [address] Kvng Huerta MD [address] [place] [address] Social History Tobacco Use Types Packs/Day [...] SPEC DESCRIPTION NASAL 08/23/20 11:41 AM CDT [facility] CORONAVIRUS SARS COV 2 PCR (RESP) NEGATIVE NEGATIVE 08/23/2021 8:21 PM CDT [facility] Comment: THE SARS-CoV-2 TEST HAS BEEN AUTHORIZED BY THE FDA UNDER AN EUA FOR USE BY AUTHORIZED LABORATORIES. PERFORMED BY NUCLEIC ACID AMPLIFICATION PCR FIRST TEST NO 08/23/2021 11:41 AM CDT [facility] EMPLOYED IN HEALTHCARE NO 08/23/2021 11:41 AM CDT [facility] SYMPTOMATIC DEFINED BY CDC NO 08/23/2021 11:41 AM CDT [facility] HOSPITALIZATION STATUS NO 08/23/2021 11:41 AM CDT [facility] PATIENT IN ICU NO 08/23/2021 11:41 AM CDT [facility] RESIDENT OF [facility] NO 08/23/2021 11:41 AM CDT [facility] NOT 08/23/2021 11:41 AM CDT [facility] NASAL STRUCTURE / Unknown 08/23/2021 11:41 AM CDT us Kvng Huerta MD MICROBIOLOGY - GENERAL ORDERABL ES Final Result [facility] [address] [place] [address], [place] [phone] [facility] [address] [place], [place] [address] [phone] documented in this encounter Visit Diagnoses Diagnosis Preop examination- Primary Preoperative examination, unspecified documented in this encounter Additional Health Concerns Infection Onset Date Last Indicated Resolved Time COVID-19 Rule Out 08/23/2021 08/23/2021 08/23/2021 8:21 PM CDT COVID-19 Rule Out 11/24/2021 11/24/2021 12/01/2021 12:33 AM HEALTH CARE FACILITIES INSPECTOR Assessment Noted Time PHQ-9 Depression Total Score: 0 07/21/20 9:38 AM CDT documented as of this encounter Care Teams Documentation Improvement Specialist Relationship Specialty Start Date End Date Guido Echols MD [address] [place] [address] PCP - General INTERNAL MEDICINE 12/05/19 documented as of this encounter
--- OUTSIDE RECORDS SUMMARY | 2025-08-26 15:48 | XMS_ITS | Clinical Summary ---
Author Organization [facility] [employer] Address [address] [place] [address] Care Team Providers Care Environmental Services Manager Name Role Phone Unavailable Primary Care Provider Unavailabl e Source Comments [facility] [employer],non-owned Affiliates and Associated Physician Practices is amultiple site organization consisting of ambulatory clinics and hospital sitesin [place], [place], [place] and [place]. This disclosure is being madepursuant to the Care Everywhere program and may not contain all information available regarding this patient. Last updated 18.[facility] [employer] Allergies Active Allergy Reactions Criticality Noted Date Comments Aspirin Rash Medium 04/04/2025 Medications * This document contains information received from the source organization and may not represent a complete record from that organization. * Be aware that medications may not be up to date on this document. Alwaysverify current medications with the patient. metFORMIN (Glucophage) 1000 MG tabletIndicatio ns:Obesity Take 1 (one) tablet by mouth 2 times daily with morning and evening meal for 30 days Reasons: OBESITY 60 tablet 1 04/08/2025 Active Active Problems Problem Noted Date Diagnosed Date Episode of recurrent major d epressive disorder, unspecified depression episode severity 04/04/2025 Social History Tobacco Use Types Packs/Day Years Used Date Smoking Tobacco: Every Day Cigarettes Smokeless Tobacco: Never Tobacco Cessation:Ready to Q uit: No; Counseling Given: Yes AUDIT-C Answer Date Recorded Q1: How often do you have a drink containing alcohol? Never 04/04/2025 Q2: How many drinks containi ng alcohol do you have on a typical day when you are drinking? Patient does not drink Q3: How often do you have si x or more drinks on one occasion? Never 04/04/2025 Overall Financial Resource Strain (CARDIA) Answe r Date Recorded How hard is it for you to pa y for the very basics like food, housing, medical care, and heating? Not very hard 04/04/2025 [facility] [place] of Occupat ional Health - Occupational Stress Questionnaire Answer Date Recorded Do you feel stress - tense, restless, nervous, or anxious, or unable to sleep at night because your mind is troubled all the time - these days? Rather much 04/04/2025 Hunger Vital Sign Answer Date Recorded Within the past 12 months, y ou worried that your food would run out before you got the money to buy more. Never true 04/04/20 Within the past 12 months, t he food you bought just didn't last and you didn't have money to get more. Never true 04/04/2025 PRAPARE - Transportation Answer Date Re corded In the past 12 months, has l ack of transportation kept you from medical appointments or from getting medications? No 03/20 In the past 12 months, has l ack of transportation kept you from meetings, work, or from getting things needed for daily living? No 04/04/2025 Housing Stability Vital Sign Answer John e Recorded In the last 12 months, was t here a time when you were not able to pay the mortgage or rent on time? No 04/04/2025 In the past 12 months, how m any times have you moved where you were living? 1 04/04/2025 At any time in the past 12 m [facility], were you homeless or living in a alf (including now)? No 04/04/2025 Comments No Sex and Gender Information Value Date Recorded Sex Assigned at Not on file Legal Sex Female 3:25 AM CDT Gender Identity Not on file Sexual Orientation Not on file Last Filed Vital Signs Vital Sign Reading Time Taken Comments Blood Pressure 118/72 04/08/2025 7:04 AM CDT Pulse 54 04/08/2025 7:04 AM CDT Temperature 36.8 C (98.2 F) 04/08/2025 7:04 AM CDT Respiratory Rate 18 04/08/2025 7:04 AM CDT Oxygen Saturation 98% 04/08/2025 7:04 AM CDT Inhaled Oxygen Concentration - - Weight 139.6 kg (307 lb 12.8 oz) 04/04/2025 7:05 PM CDT Height 165.1 cm (5' 5) 04/04/2025 7:05 PM CDT Body Mass Index 51.22 04/04/2025 7:05 PM CDT Plan of Treatment Health Maintenance Due Date Last Done Comments LIPID TESTING 1985 MAMMOGRAM 1985 HIV SCREENING 2000 HEPATITIS C SCREENING 07/28/2003 DTAP/TDAP/TD VACCINES (1 - Tdap) 2004 HEPATITIS B VACCINE (1 of 3 - 19+ 3-dose series) 2004 PNEUMOCOCCAL VACCINE (1 of 2 - PCV) 2004 PAP SMEAR 2006 HPV VACCINE (1 - 3-dose SCDM series) 2012 DEPRESSION SCREENING 11/20/2024 COVID-19 VACCINE (1 - 2023-2 5 season) 2025 INFLUENZA VACCINE (#1) 2025 ZOSTER VACCINE (1 of 2) 2035 HIB VACCINE Aged Out No longer eligi ble based on patient's age to complete this topic MENINGOCOCCAL (Group B) VACC INE SHARED DECISION-MAKING Aged Out No longer eligibl e based on patient's age to complete this topic MENINGOCOCCAL GROUPS A/C/Y/W VACCINE Aged Out No longer eligible b ased on patient's age to complete this topic Advance Directives * Full Code (Latest Code Status on File) Date Activated Date Inactivated Comments 04/04/2025 7:30 PM 04/08/2025 5:33 PM
--- OUTSIDE RECORDS SUMMARY | 2025-08-26 15:48 | XMS_ITS | Clinical Summary ---
Author Organization [facility] Address [address] [place] [id number] Care Team Providers Care Nursery Technician Name Role Phone Unavailable Primary Care Provider Unavailabl e Social History Tobacco Use Types Packs/Day Years Used Date Smoking Tobacco: Never Assessed Comments Unknown Sex and Gender Information Value Date Recorded Sex Assigned at Not on file Legal Sex Female 12:38 PM CLINICAL LAB TECHNOLOGIST Gender Identity Not on file Sexual Orientation Not on file Plan of Treatment Health Maintenance Due Date Last Done Comments Hepatitis C Virus (HCV) Screening 1985 TdaP Immunization 1985 Pap Smear 2006 Human Papillomavirus (HPV) Immunization (1 - 3-dose SCDM series) 2012 Cervical Cancer Screening (CCS) 2015 HPV/Cotest 2015 Influenza Immunization (#1) 2025 10/30/2017, 0 12/27/2016 SARS-COV-2 Immunization ( - season) 2025 Respiratory Syncytial Virus (RSV) Immunization (Adult) (1 [...]
--- OUTSIDE RECORDS SUMMARY | 2025-08-26 15:49 | XMS_ITS | Clinical Summary ---
Author Organization [facility] Address [address] [place] [address] Care Team Providers Care Form Setter Steel Forms Name Role Phone Guido Echols MD Primary Care Provider [phone] Allergies Active Allergy Reactions Criticality Noted Date [...] (BMI) of 50.0 to 59.9 in adult (CMS/[facility]) Take 1 tablet (1,000 mg total) by [...] Resolved Date Cellulitis of scalp 09/14/2022 01/09/20 23 Insect bite of arm, left 09/14/2022 Insect [...] Comments Blood Pressure 106/78 01/09/2023 3:56 PM SIGNAL MAINTENANCE TECHNICIAN Pulse 80 01/09/2023 3:56 PM SIGNAL MAINTENANCE TECHNICIAN Temperature 36.2 C (97.2 F) 01/09/2023 3:56 PM SIGNAL MAINTENANCE TECHNICIAN Respiratory Rate 16 01/09/2023 3:56 PM SIGNAL MAINTENANCE TECHNICIAN Oxygen Saturation 97% 01/09/2023 3:56 PM SIGNAL MAINTENANCE TECHNICIAN Inhaled Oxygen Concentration - - Weight 146.3 kg (322 lb 9.6 oz) 01/09/2023 3:56 PM SIGNAL MAINTENANCE TECHNICIAN Height 165.1 cm (5' 5) 01/09/2023 3:56 PM SIGNAL MAINTENANCE TECHNICIAN Body Mass Index 53.68 01/09/2023 3:56 PM SIGNAL MAINTENANCE TECHNICIAN Plan of Treatment Health Maintenance Due Date Last Done Comments Cervical Cancer Screening Pap Smear (Age 30 to 64) Every 3 Years 1985 DTaP, Tdap and Td Vaccines (6 - Tdap) 1996 05/26/1990, 07/25/1987, 04/26/1986, Additional history exists Hepatitis C 2003 HPV Vaccines (1 - 3-dose SCDM series) 2012 Cervical Cancer Screening Pap with HPV Testing (Age 30 to 64) Every 5 Years 2015 Cervical Cancer Screening with HPV 2015 Annual Physical 03/08/2022 03/08/2021 PHQ-2 (Physician Drummond) 11/20/2024 COVID-19 Vaccine ( season) 2025 Mammogram Screening 2025 Influenza Adult (#1) 2025 09/14/2022, 10/30/2017, 10/30/2017, Additional history exists Hepatitis B Vaccines Completed 12/06/2000, 2000, 06/28/2000 Meningococcal B Vaccine Aged Out No l [...] patient's age to complete this topic Insurance [place] Care Teams Form Setter Steel Forms Relationship Specialty Start Date End Date Guido Echols MD [address] [place] [id number] PCP - General INTERNAL MEDICINE 12/05/19
--- OUTSIDE RECORDS SUMMARY | 2025-08-26 15:49 | XMS_ITS | Patient Health Record ---
Author Organization [facility] Address [address] [place] [address] Care Team Providers Care Block Saw Operator Name Role Phone Kvng Barnett Primary Care Provider Gurjit, [place] Unavailable [phone] Allergies Allergen (clinical drug ingredient) Drug/Non Drug [...] Duration) Notes Start Date End Date Status Melatonin 10 MG once daily at bedtim e Orally Not-Taking lamoTRIgine 25 MG 2 tablets Orally be ly; Duration: 30 days 04/28/2025 Active Sertraline HCl 100 MG 1 tablet Orally On ce a day; Duration: 30 days Active ALPRAZolam 0.25 MG 1 tablet Orally Once daily; Duration: 30 days As needed 06/12/2025 Active Social History Tobacco Use: Social History Observation [...] school 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 Stress is when someone feels tense, nervous, anxious, or can\t sleep at night because their mind is troubled Somewhat In the past year have you sp ent more than 2 nights in a row in a intermediate, custodial, retirement center, or juvenile correctional facility? No Do [...] Status Risk Notes Problem Generalized anxiety disorder (57660150) Generalized anxiety disorder (F41.1) Active confirmed r/o panic disorder Problem Intestinal infectious disease (482450662) Contact with and (suspected) exposure to other communicable diseases (Z20.89) Active confirmed Problem Reactive airway disease (838580821366) Reactive airway disease (J45.909) Active confirmed Problem Overweight (209813054) Over weight (E66.3) Active confirmed Vital Signs Heart Rate 76 /min 04/28/2025 Respiratory Rate 16 /min 04/28/2025 Oximetry 97 % 04/28/2025 Blood pressure diastolic 75 mm Hg 04/28/2025 Height 68 in 04/28/2025 Blood pressure systolic 110 mm Hg 04/28/2025 Weight 304.4 lbs 04/28/2025 BMI 46.28 kg/m2 04/28/2025 Encounters Encounter Location Date Provider Diagnosis [address] [place] [address] 02/27/2025 [place] Cagle Generalized anxiety disorder F41.1 and Over weight E66.3 [facility] [address] [place] [address] 03/11/2025 [place] Gurjit Generalized anxiety disorder F41.1 and Over weight E66.[address] [place] [address] 04/28/2025 En[place] Cagel Over weight E66.3 an d Generalized anxiety disorder F41.[address] [place] [address] 06/12/2025 [place] Escalerannan Generalized anxiety disorder F41.1 and Over weight E66.[address] [place] [address] 02/27/2025 Kvng Barnett Contact with and (suspected) exposure to other communicable diseases Z20.89 [facility] [address] [place] [address] 02/27/2025 Enidtaylor Cagle [address] [place] [address] 03/03/2025 [place] Gurjit [address] [address] 03/05/2025 [place] Gurjit [facility] [address] [place] [address] 03/12/2025 En[place]taylor [address] [place] [address] 03/18/2025 Kvng Barnett [facility] [address] [place] [address] 05/30/2025 En[place] Cagle Generalized anxiety disorder F41.1 [facility] [address] [address] 07/17/2025 En[place] Cagle Generalized anxiety disorder F41.1 Assessments Encounter Date Diagnosis (ICD Code) Assessment Notes Treatment Notes Treatment Clinical Notes Section Notes 02/27/2025 Contact with and (suspected) exposure to other communicable diseases (ICD-10 - Z20.89) Patient Educated with: HIV testing Care Instructions.pdf (HIV testing Care Instructions.pdf) 02/27/2025 Generalized anxiety disorder (ICD-10 - F41.1) [...] broken bones, and concussions. possible situational depression 04/28/2025 Over weight (ICD-10 - E66.3) possible situational depression 05/30/2025 Generalized anxiety disorder (ICD-10 - F41.1) r/o panic disorder 06/12/2025 Generalized anxiety disorder (ICD-10 - F41.1) r/o panic disorder Take lamotrigine as prescribed. Reviewed purpose (mood stability, reduce depression, and help with irritability), benefits, and risks - including sedation, nausea, rash - benign or serious. A serious rash could cause shedding of all skin and even become fatal. Stop taking medication immediately if a rash occurs and seek emergency care. Notify our office as well. If you ever miss 4 or more consecutive days of taking this medication, please let the office know. The prescriber may need to restart this medication at 25 mg daily and titrate up as tolerated. Benzodiazepine use is intended for short-term uset. [...] risk of falls, broken bones, and concussions. Nausea/vomiti ng to Lexapro possible situational depression 03/11/2025 Generalized anxiety disorder (ICD-10 - F41.1) [...] risk of falls, broken bones, and concussions. Nausea/vomiti ng to Lexapro possible situational depression 07/17/2025 Generalized anxiety disorder (ICD-10 - F41.1) r/o panic disorder 03/11/2025 Over weight (ICD-10 - E66.3) possible situational depression 04/28/2025 Generalized anxiety disorder (ICD-10 - F41.1) r/o panic disorder Begin Lamotrigine as prescribed. Reviewed purpose (mood stability, reduce depression, and help with irritability), benefits, and risks - including sedation, nausea, rash - benign or serious. A serious rash could cause shedding of all skin and even become fatal. Stop taking medication immediately if a rash occurs and seek emergency care. Notify our office as well. If you ever miss 4 or more consecutive days of taking this medication, please let the office know. The prescriber may need to restart this medication at 25 mg daily and titrate up as tolerated. Benzodiazepine use is intended for short-term uset. [...] risk of falls, broken bones, and concussions. Nausea/vomiti ng to Lexapro possible situational depression 06/12/2025 Over weight (ICD-10 - E66.3) possible situational depression 02/27/2025 Over weight (ICD-10 - E66.3) possible [...] May also contact the 24-hour crisis hotline ([facility]), refer to the closest emergency room or [...] up. This session was completed telephonically with client/parental/guar ema consent: Unable to determine movement status, assess [...] May also contact the 24-hour crisis hotline ([facility]), refer to the closest emergency room or [...] plan and follow up. possible situational depression 04/28/2025 Other Reasons, potential benefits, potential risks, interactions [...] May also contact the 24-hour crisis hotline ([facility]), refer to the closest emergency room or [...] of education, treatment plan and follow up. Patient may self-administ er their own medications or may self-administ er their own oral medications per [place] Protocol. possible situational depression 06/12/2025 Other Reasons, potential benefits, potential risks, interactions [...] May also contact the 24-hour crisis hotline ([facility]), refer to the closest emergency room or [...] up. This session was completed telephonically with client/parental/guar ema consent: Unable to determine movement status, assess appearance, affect, AIMS, or vital signs. possible situational depression Plan Of Treatment No Information Medical (General) History Medical History History ICD Code anxiety Surgical History Surgery Date(Month/Year) Adenoidectomy, tonsillectomy 1997 2004,2010,2012 cholecystectomy 2020 Hospitalization History Reason Date(Month/Year) Attempted Suicide (Pt states was not true attempt, just suicidal thoughts) 03/2025
[2025-08-26 16:02] VITALS: BP 103/82; PULSE 53; RESP 20; O2SAT 100
--- OUTSIDE RECORDS SUMMARY | 2025-08-26 16:26 | XMS_ITS | Clinical Summary ---
Author Organization [facility] Address [address] [place] [address] Care Team Providers Care High School Social Studies Tutor Name Role Phone Unavailable Primary Care Provider Unavailabl e Social History Tobacco Use Types Packs/Day Years Used Date Smoking Tobacco: Never Assessed Comments Unknown Sex and Gender Information Value Date Recorded Sex Assigned at Not on file Legal Sex Female 12:38 PM BALLOON MAKER Gender Identity Not on file Sexual Orientation [...]
--- OUTSIDE RECORDS SUMMARY | 2025-08-26 16:26 | XMS_ITS | Clinical Summary ---
Author Organization [facility] Address [address] [place] [address] Care Team Providers Care Woven Paper Hat Mender Name Role Phone Unavailable Primary Care Provider Unavailabl e Source Comments [facility],non-owned Affiliates and Associated Physician Practices is amultiple site organization consisting of ambulatory clinics and hospital sitesin [place], [place], [place] and [place]. This disclosure is being madepursuant to the Care Everywhere program and may not contain all information available regarding this patient. Last updated 18.[facility] Allergies Active Allergy Reactions Criticality Noted Date [...] care, and heating? Not very hard 04/04/2025 [facility] [place] of Occupat ional Health - Occupational Stress [...] any time in the past 12 m [facility], were you homeless or living in a nursing home (including now)? No 04/04/2025 Comments No Sex [...]
--- OUTSIDE RECORDS SUMMARY | 2025-08-26 16:26 | XMS_ITS | Clinical Summary ---
Author Organization [facility] Address [address] [place] [address] Care Team Providers Care Manager Purchasing Name Role Phone Guido Echols MD Primary Care Provider [phone] Allergies Active Allergy Reactions Criticality Noted Date [...] (BMI) of 50.0 to 59.9 in adult (CMS/[facility]) Take 1 tablet (1,000 mg total) by [...] Comments Blood Pressure 106/78 01/09/2023 3:56 PM CARROT GRADER INSPECTOR Pulse 80 01/09/2023 3:56 PM CARROT GRADER INSPECTOR Temperature 36.2 C (97.2 F) 01/09/2023 3:56 PM CARROT GRADER INSPECTOR Respiratory Rate 16 01/09/2023 3:56 PM CARROT GRADER INSPECTOR Oxygen Saturation 97% 01/09/2023 3:56 PM CARROT GRADER INSPECTOR Inhaled Oxygen Concentration - - Weight 146.3 kg (322 lb 9.6 oz) 01/09/2023 3:56 PM CARROT GRADER INSPECTOR Height 165.1 cm (5' 5) 01/09/2023 3:56 PM CARROT GRADER INSPECTOR Body Mass Index 53.68 01/09/2023 3:56 PM CARROT GRADER INSPECTOR Plan of Treatment Health Maintenance Due Date [...] 2015 Annual Physical 03/08/2022 03/08/2021 PHQ-2 (Physician Coats) 11/20/2024 COVID-19 Vaccine ( season) 2025 Mammogram [...] patient's age to complete this topic Insurance [employer] [employer] Care Teams Manager Purchasing Relationship Specialty Start Date End Date Guido Echols MD [address] [place] [id number] PCP - General INTERNAL MEDICINE 12/05/19
--- OUTSIDE RECORDS SUMMARY | 2025-08-26 16:26 | XMS_ITS | Encounter Summary ---
Author Organization [facility] Address [address] [place] [address] Care Team Providers Care Brazing Furnace Feeder Name Role Phone Guido Echols MD Primary Care Provider [phone] Encounter Details Date Type Department Care Team (Late st Contact Info) Description 08/20/2021 Prep for Procedure [facility] Pre-Admission Testing [facility] [place] [address] Kvng Huerta MD [address] [place] [address] Social History Tobacco Use Types Packs/Day [...] SPEC DESCRIPTION NASAL 08/23/20 11:41 AM CDT [facility] CORONAVIRUS SARS COV 2 PCR (RESP) NEGATIVE NEGATIVE 08/23/2021 8:21 PM CDT [facility] Comment: THE SARS-CoV-2 TEST HAS BEEN AUTHORIZED BY THE FDA UNDER AN EUA FOR USE BY AUTHORIZED LABORATORIES. PERFORMED BY NUCLEIC ACID AMPLIFICATION PCR FIRST TEST NO 08/23/2021 11:41 AM CDT [facility] EMPLOYED IN HEALTHCARE NO 08/23/2021 11:41 AM CDT [facility] SYMPTOMATIC DEFINED BY CDC NO 08/23/2021 11:41 AM CDT [facility] HOSPITALIZATION STATUS NO 08/23/2021 11:41 AM CDT [facility] PATIENT IN ICU NO 08/23/2021 11:41 AM CDT [facility] RESIDENT OF [facility] NO 08/23/2021 11:41 AM CDT [facility] NOT 08/23/2021 11:41 AM CDT [facility] NASAL STRUCTURE / Unknown 08/23/2021 11:41 AM CDT us Kvng Huerta MD MICROBIOLOGY - GENERAL ORDERABL ES Final Result [facility] [address] [place] [address], [place] [phone] [facility] [address] [facility] [facility] [place], [place] [address] [phone] documented in this encounter Visit Diagnoses Diagnosis Preop examination- Primary Preoperative examination, unspecified documented in this encounter Additional Health Concerns Infection Onset Date Last Indicated Resolved Time COVID-19 Rule Out 08/23/2021 08/23/2021 08/23/2021 8:21 PM CDT COVID-19 Rule Out 11/24/2021 11/24/2021 12/01/2021 12:33 AM CURING PRESS MAINTAINER Assessment Noted Time PHQ-9 Depression Total Score: 0 07/21/20 9:38 AM CDT documented as of this encounter Care Teams Brazing Furnace Feeder Relationship Specialty Start Date End Date Guido Echols MD [address] [place] [id number] PCP - General INTERNAL MEDICINE 12/05/19 documented as of this encounter
== END 2025-08-26 16:04 | disposition home or self-care (01) ==
PROVIDERS: Emergency Medicine; Emergency Provider Emergency Medicine; PCP Orthopaedic Surgery Orthopaedic Trauma
DX: R07.89 Other chest pain (principal); E28.2 Polycystic ovarian syndrome; F41.9 Anxiety disorder, unspecified; F32.A Depression, unspecified; F17.210 Nicotine dependence, cigarettes, uncomplicated; F17.290 Nicotine dependence, other tobacco product, uncomplicated; Z79.899 Other long term (current) drug therapy; R94.31 Abnormal electrocardiogram [ECG] [EKG]; R00.1 Bradycardia, unspecified
CPT/HCPCS: 36415; 71045; 80053; 83690; 84484; 85025; 85610; 85730; 93005; 99284